=== PATIENT | male | born 1960 | race Caucasian/White ===

== ENCOUNTER 2020-11-27 10:14 | Outpatient (REF) | payer OTHER, SELFPAY ==
[2020-11-27 11:23] LABS: Estimated Average Glucose 108 mg/dL; Hemoglobin A1c % 5.4 %
[2020-11-27 12:21] LABS: Cholesterol 205 mg/dL; Glucose Fasting 107 mg/dL (60-99); HDL Cholesterol 36 mg/dL; LDL Cholesterol Calculated 137 mg/dl; Triglycerides 160 mg/dL
[2020-11-27 13:30] LABS: Reflex LDLD? No
== END 2020-11-27 10:15 | disposition home or self-care (01) ==
LOC: HO.LNP 10:14
PROVIDERS: Visit Provider Internal Medicine
DX: E78.00 Pure hypercholesterolemia, unspecified (principal)
CPT/HCPCS: 80061; 82947; 83036

== ENCOUNTER 2021-01-09 14:57 | Outpatient (REF) | payer OTHER, SELFPAY ==
--- NOTE | ~2021-01-09 | XR_ITS ---
EXAMINATION: XR THORACOLUMBAR SPINE CLINICAL INFORMATION: Contusion back. COMPARISON: Radiographs cervical spine 01/09/2021, chest radiographs 08/29/2008. TECHNIQUE: The thoracic spine is imaged in 5 views, AP x2, lateral x2, and lateral view coned to cervical thoracic region. FINDINGS: There is normal thoracic segmentation with 12 rib-bearing thoracic vertebrae of normal height and normal thoracic kyphosis. There is no visible thoracic vertebral compression, spondylolisthesis, destructive process, or paraspinal soft tissue swelling. There are multilevel vertebral spurring greatest anteriorly and right laterally with mild bridging osteophytes. There are some scattered anterior syndesmophytes anterior annulus. There is no significant focal disc narrowing and no erosive changes. XR/XR thoracic spine 2V IMPRESSION: 1. Normal thoracic kyphosis. No vertebral compression or spondylolisthesis. 2. Multilevel vertebral spurring and bridging osteophytes.
--- NOTE | ~2021-01-09 | XR_ITS ---
EXAMINATION: XR CERVICAL SPINE CLINICAL INFORMATION: Contusion back. COMPARISON: Thoracic spine radiographs 01/09/2021 TECHNIQUE: The cervical spine is imaged in 6 views: AP, odontoid x 2, lateral, bilateral oblique. FINDINGS: There is straightening and mild reversal cervical lordosis. The odontoid appears intact. The vertebral bodies are normal in height. There is normal bony mineralization. There is no cervical vertebral compression or visible fracture, spondylolisthesis, or prevertebral soft tissue swelling. There are degenerative disc changes C4-C5 and C5-C6 with mild disc narrowing and endplate sclerosis and vertebral osteophytes, greater anteriorly. There are also bridging anterior osteophytes without disc narrowing C6-C7, and there are syndesmophytes with ossification anterior and posterior annulus at C2-C3. Oblique views demonstrate bilateral foraminal spurring at C5-C6 and right foraminal spurring C6-C7. XR/XR cervical spine 4V IMPRESSION: 1. Mild reversal cervical lordosis with multilevel degenerative disc changes and vertebral spurring. Syndesmophytes C2-C3. Foraminal spurring lower cervical spine. 2. No vertebral compression, spondylolisthesis, or prevertebral soft tissue swelling.
== END 2021-01-09 14:58 | disposition home or self-care (01) ==
LOC: HO.XRAY 14:57
PROVIDERS: PCP Internal Medicine; Visit Provider Internal Medicine
DX: S20.229A Contusion of unspecified back wall of thorax, initial encounter (principal)
CPT/HCPCS: 72050; 72070

== ENCOUNTER 2021-06-05 10:17 | Outpatient (REF) | payer OTHER, SELFPAY ==
[2021-06-05 10:20] LABS: MANUAL DIFF FLAG NO
[2021-06-05 10:58] LABS: Mean Platelet Volume 10.1 fL (9.4-12.4); Neutrophils Percent Auto 57.2 % (45-73)
[2021-06-05 11:04] LABS: Appearance Urine CLEAR; Color Urine YELLOW; Glucose Urine UA NEG (NEG); Leukocyte Esterase Urine NEG (NEG); Nitrite Urine NEG (NEG); PH 5.5 (5.0-8.0); Specific Gravity - Urine 1.025 (1.005-1.025); Urine Blood NEG (NEG); Urine Ketones NEG (NEG); Urine Protein TRACE MG/DL (NEG-TRACE)
[2021-06-05 11:05] LABS: Estimated Average Glucose 114 mg/dL; Hemoglobin A1c % 5.6 %
[2021-06-05 11:09] LABS: Basophils Percent Auto 0.6 % (0-2); Eosinophils Absolute Auto 0.2 X10*3/uL (0.0-0.4); Eosinophils Percent Auto 2.9 % (0-4); Hematocrit 47.4 % (42.0-52.0); Hemoglobin 15.4 g/dl (14.0-18.0); Imm Gran Abs Auto 0.03 X10*3/uL (0.00-0.03); Imm Gran Pct Auto 0.4 % (0.0-0.4); Lymphocytes Absolute Auto 2.1 X10*3/uL (1.2-4.9); Lymphocytes Percent Auto 29.6 % (20-40); Mean Corpuscular HGB Conc 32.5 g/dl (31.0-36.0); Mean Corpuscular Volume 92.2 fL (80.0-98.0); Monocytes Absolute Auto 0.7 X10*3/uL (0.1-1.2); Monocytes Percent Auto 9.3 % (2-11); Neutrophils Absolute Auto 4.1 x10*3/uL (2.0-8.3); Platelet Count 263 X10*3/uL (160-400); Red Blood Count 5.14 X10*6/uL (4.60-5.80); Red Cell Distribution Width 12.9 % (11.0-16.0); White Blood Count 7.2 X10*3/uL (4.8-10.8)
[2021-06-05 11:28] LABS: Microalbum/Creatinine Ratio Ur 12.4 ug/mg cr
[2021-06-05 11:34] LABS: Alanine Aminotransferase 70 U/L (0-40); Albumin Level 4.1 g/dL (3.5-5.0); Alkaline Phosphatase 62 U/L (39-117); Anion Gap 17 (12-20); Aspartate Amino Transferase 38 U/L (5-37); Bilirubin Total 0.8 mg/dL (0.0-1.0); Blood Urea Nitrogen 19 mg/dL (9-16); Calcium 9.5 mg/dL (8.4-10.2); Carbon Dioxide 24 mmol/L (22-29); Chloride 107 mmol/L (96-108); Cholesterol 205 mg/dL; Estimated Glomerular Filt Rate > 60; Glucose Fasting 95 mg/dL (60-99); HDL Cholesterol 29 mg/dL; LDL Cholesterol Calculated 141 mg/dl; Potassium 4.8 mmol/L (3.3-5.1); Sodium 143 mmol/L (135-145); Total Protein 7.4 g/dL (6.5-8.0); Triglycerides 177 mg/dL
[2021-06-05 11:57] LABS: PSA,Total (Free>4and<10) 0.66 ng/mL (0.00-4.00)
[2021-06-05 13:47] LABS: Reflex LDLD? No
== END 2021-06-05 10:18 | disposition home or self-care (01) ==
LOC: HO.LNP 10:17
PROVIDERS: PCP Internal Medicine; Visit Provider Internal Medicine
DX: Z00.00 Encounter for general adult medical examination without abnormal findings (principal); Z12.5 Encounter for screening for malignant neoplasm of prostate; E78.00 Pure hypercholesterolemia, unspecified; R73.03 Prediabetes; N40.0 Benign prostatic hyperplasia without lower urinary tract symptoms
CPT/HCPCS: 80053; 80061; 81003; 82043; 83036; 84153; 85025

== ENCOUNTER 2022-06-13 10:49 | Outpatient (REF) | payer OTHER, SELFPAY ==
[2022-06-13 10:53] LABS: MANUAL DIFF FLAG NO
[2022-06-13 11:06] LABS: Basophils Absolute Auto 0.1 X10*3/uL (0.0-0.2); Basophils Percent Auto 0.6 % (0-2); Eosinophils Absolute Auto 0.3 X10*3/uL (0.0-0.4); Eosinophils Percent Auto 3.3 % (0-4); Hematocrit 46.6 % (42.0-52.0); Hemoglobin 15.4 g/dl (14.0-18.0); Imm Gran Abs Auto 0.04 X10*3/uL (0.00-0.03); Imm Gran Pct Auto 0.4 % (0.0-0.4); Lymphocytes Absolute Auto 2.3 X10*3/uL (1.2-4.9); Lymphocytes Percent Auto 23.6 % (20-40); Mean Corpuscular Hemoglobin 30.3 pg (27.0-33.0); Mean Corpuscular Volume 91.7 fL (80.0-98.0); Mean Platelet Volume 10.5 fL (9.4-12.4); Monocytes Absolute Auto 0.8 X10*3/uL (0.1-1.2); Neutrophils Absolute Auto 6.2 x10*3/uL (2.0-8.3); Neutrophils Percent Auto 64.1 % (45-73); Platelet Count 262 X10*3/uL (160-400); Red Blood Count 5.08 X10*6/uL (4.60-5.80); Red Cell Distribution Width 13.1 % (11.0-16.0); White Blood Count 9.7 X10*3/uL (4.8-10.8)
[2022-06-13 11:13] LABS: Appearance Urine Clear; Color Urine Yellow; Glucose Urine UA Negative (Negative); Leukocyte Esterase Urine Negative (Negative); Nitrite Urine Negative (Negative); Urine Blood Negative (Negative); Urine Ketones Negative (Negative); Urine Protein Negative (Neg-Trace)
[2022-06-13 11:19] LABS: Bacteria Urine None Seen (None Seen); Hyaline Casts Urine 0-2 /LPF (0-2); RBC Urine 0-2 /HPF (0-2); Squamous Epithelial Cell Urine 0-2 /HPF (0-2); WBC Urine 0-5 /HPF (0-5)
[2022-06-13 11:21] LABS: Alanine Aminotransferase 44 U/L (0-40); Alkaline Phosphatase 85 U/L (39-117); Anion Gap 14 (12-20); Aspartate Amino Transferase 26 U/L (5-37); Bilirubin Total 0.6 mg/dL (0.0-1.0); Blood Urea Nitrogen 19 mg/dL (9-16); Calcium 9.3 mg/dL (8.4-10.2); Carbon Dioxide 26 mmol/L (22-29); Chloride 105 mmol/L (96-108); Cholesterol 207 mg/dL; Estimated Glomerular Filt Rate > 60; Glucose Fasting 104 mg/dL (60-99); HDL Cholesterol 37 mg/dL; LDL Cholesterol Calculated 145 mg/dl; Potassium 4.4 mmol/L (3.3-5.1); Sodium 141 mmol/L (135-145); Total Protein 7.3 g/dL (6.5-8.0); Triglycerides 125 mg/dL
[2022-06-13 11:33] LABS: PSA,Total (Free>4and<10) 0.46 ng/mL (0.00-4.00)
[2022-06-13 12:19] LABS: Creatinine Urine 106.94 mg/dL; Microalbum/Creatinine Ratio Ur 21.5 ug/mg cr
[2022-06-13 12:38] LABS: Estimated Average Glucose 120 mg/dL; Hemoglobin A1c % 5.8 %
== END 2022-06-13 10:50 | disposition home or self-care (01) ==
LOC: HO.LNP 10:49
PROVIDERS: Visit Provider Internal Medicine
DX: Z00.00 Encounter for general adult medical examination without abnormal findings (principal); E78.00 Pure hypercholesterolemia, unspecified; R73.03 Prediabetes; N40.0 Benign prostatic hyperplasia without lower urinary tract symptoms; I10 Essential (primary) hypertension; Z12.5 Encounter for screening for malignant neoplasm of prostate
CPT/HCPCS: 80053; 80061; 81001; 82043; 83036; 84153; 85025

== ENCOUNTER 2022-11-01 09:59 | Day surgery (SDC) | payer OTHER, SELFPAY ==
[2022-11-01 10:30] VITALS: BMI 44.3
[2022-11-01 10:31] VITALS: BP 157/81; PULSE 63; RESP 18; TEMP 35.9; O2SAT 95
[2022-11-01] MEDS: Lactated Ringers 500 ML 20 ML IVCONT (10:54)
[2022-11-01 12:35] VITALS: BP 123/75; PULSE 72; RESP 16; TEMP 37.1; O2SAT 94
--- NOTE | 2022-11-01 12:38 | P.BOP_ITS ---
Brief Operative Note Date of Service: 11/01/22 Pre-op diagnosis: Screening Post-op diagnosis: other (Diverticulosis) Procedure: Colonoscopy to the cecum and TI Surgeon: Supa Moffett Anesthesia: MAC Was an Stitcher Tape Controlled Machine used for this Procedure?: No Estimated blood loss (mL): 0 Pathology: none sent Condition: stable Disposition: PACU
[2022-11-01 12:51] VITALS: BP 146/78; PULSE 73; RESP 20; TEMP 37.1; O2SAT 99
--- NOTE | 2022-11-01 13:48 | OP_ITS ---
DATE OF SERVICE: 11/01/2022 SURGEON: Supa oMffett MD INDICATIONS: The patient presents for evaluation of personal history of a tubular adenoma of the colon, family history of colon cancer, and colorectal cancer screening. Full consent has been obtained from him for this, including risks of bleeding and perforation. PREOPERATIVE DIAGNOSIS: POSTOPERATIVE DIAGNOSIS: PROCEDURE PERFORMED: Colonoscopy to the cecum and terminal ileum. ESTIMATED BLOOD LOSS: COMPLICATIONS: ANESTHESIA: Monitored anesthesia care. ASSISTANTS: SPECIMENS: PREOPERATIVE DIAGNOSES: Colorectal cancer screening, personal history of tubular adenoma of the colon, and family history of colon cancer. POSTOPERATIVE DIAGNOSES: Colorectal cancer screening, personal history of tubular adenoma of the colon, family history of colon cancer, sigmoid diverticulosis and internal hemorrhoids. DESCRIPTION OF PROCEDURE: The patient was placed in the left lateral decubitus position. The digital rectal exam revealed no abnormalities. The Olympus video pediatric colonoscope was entered into the rectum and advanced to the cecum with assistance of abdominal wall pressure. Once in the cecum, I did identify a normal-appearing cecal pouch with appendiceal orifice and a normal-appearing ileocecal valve. The terminal ileum was cannulated and appeared normal. The scope was withdrawn back in the colon. The entire cecum and ileocecal valve were well visualized and appeared normal. The scope was then slowly withdrawn assessing all mucosal surface carefully. For the most part, preparation was very good throughout the colon, although there were some small areas, particularly in the sigmoid colon, with some residual stool that was irrigated and suctioned away as best as possible. I did not visualize any polyps, colitis nor angiodysplasia. There was a mild amount of sigmoid diverticulosis. In the rectum, the scope was retroflexed visualizing internal hemorrhoids, but no other pathology. The rectal mucosa appeared normal. The scope was straightened out and withdrawn from the patient. He tolerated the procedure well and was returned to the recovery area in stable condition. IMPRESSION: 1. Diverticulosis. 2. Internal hemorrhoids. PLAN: I would recommend repeat colonoscopy in 5 years for further screening. He was advised that he could resume his aspirin today. MD DAKOTAH Wiggins/LAKSHMI / [id number] GLYNN
== END 2022-11-01 13:15 | disposition home or self-care (01) ==
PROVIDERS: PCP Internal Medicine; Visit Provider Internal Medicine
PROC: 0DJD8ZZ Inspection of Lower Intestinal Tract, Via Natural or Artificial Opening Endoscopic (ICD-10-PCS; CPT 45378; principal; 2022-11-01 11:30)
DX: Z12.11 Encounter for screening for malignant neoplasm of colon (principal); Z86.010 Personal history of colon polyps; Z80.0 Family history of malignant neoplasm of digestive organs; K57.30 Diverticulosis of large intestine without perforation or abscess without bleeding; K64.8 Other hemorrhoids; R14.0 Abdominal distension (gaseous); I10 Essential (primary) hypertension; I48.91 Unspecified atrial fibrillation; I48.92 Unspecified atrial flutter; G47.33 Obstructive sleep apnea (adult) (pediatric); Z79.899 Other long term (current) drug therapy; Z99.89 Dependence on other enabling machines and devices; Z79.82 Long term (current) use of aspirin
CPT/HCPCS: 45378

== ENCOUNTER 2023-06-10 11:32 | Outpatient (REF) | payer OTHER, SELFPAY ==
[2023-06-10 11:36] LABS: MANUAL DIFF FLAG NO
[2023-06-10 12:17] LABS: Appearance Urine Clear; Basophils Absolute Auto 0.1 X10*3/uL (0.0-0.2); Basophils Percent Auto 0.8 % (0-2); Color Urine Yellow; Eosinophils Absolute Auto 0.3 X10*3/uL (0.0-0.4); Eosinophils Percent Auto 3.9 % (0-4); Glucose Urine UA Negative (Negative); Hematocrit 48.4 % (42.0-52.0); Hemoglobin 15.9 g/dl (14.0-18.0); Imm Gran Abs Auto 0.02 X10*3/uL (0.00-0.03); Imm Gran Pct Auto 0.3 % (0.0-0.4); Leukocyte Esterase Urine Negative (Negative); Lymphocytes Absolute Auto 2.1 X10*3/uL (1.2-4.9); Lymphocytes Percent Auto 26.9 % (20-40); Mean Corpuscular HGB Conc 32.9 g/dl (31.0-36.0); Mean Corpuscular Hemoglobin 30.4 pg (27.0-33.0); Mean Corpuscular Volume 92.5 fL (80.0-98.0); Mean Platelet Volume 10.5 fL (9.4-12.4); Monocytes Absolute Auto 0.6 X10*3/uL (0.1-1.2); Monocytes Percent Auto 8.1 % (2-11); Neutrophils Absolute Auto 4.8 x10*3/uL (2.0-8.3); Nitrite Urine Negative (Negative); Platelet Count 257 X10*3/uL (160-400); Red Blood Count 5.23 X10*6/uL (4.60-5.80); Red Cell Distribution Width 13.3 % (11.0-16.0); Urine Blood Negative (Negative); Urine Ketones Negative (Negative); Urine Protein Negative (Neg-Trace)
[2023-06-10 12:33] LABS: Alanine Aminotransferase 25 U/L (0-40); Alkaline Phosphatase 61 U/L (39-117); Anion Gap 12 (12-20); Aspartate Amino Transferase 22 U/L (5-37); Bilirubin Total 0.9 mg/dL (0.0-1.0); Blood Urea Nitrogen 16 mg/dL (9-16); Calcium 9.3 mg/dL (8.4-10.2); Carbon Dioxide 27 mmol/L (22-29); Chloride 103 mmol/L (96-108); Cholesterol 208 mg/dL (<200); Estimated Glomerular Filt Rate > 60; Glucose Fasting 104 mg/dL (60-99); HDL Cholesterol 33 mg/dL (>40); LDL Cholesterol Calculated 133 mg/dL (<100); Potassium 3.9 mmol/L (3.3-5.1); Sodium 138 mmol/L (135-145); Total Protein 7.6 g/dL (6.5-8.0); Triglycerides 212 mg/dL (<150)
[2023-06-10 12:34] LABS: Estimated Average Glucose 117 mg/dL; Hemoglobin A1c % 5.7 % (<6.0)
[2023-06-10 12:46] LABS: PSA,Total (Free>4and<10) 0.65 ng/mL (0.00-4.00)
[2023-06-10 12:59] LABS: Creatinine Urine 178.96 mg/dL; Microalbum/Creatinine Ratio Ur 11.1 ug/mg cr (<30)
== END 2023-06-10 11:33 | disposition home or self-care (01) ==
LOC: HO.LNP 11:32
PROVIDERS: Visit Provider Internal Medicine
DX: E78.00 Pure hypercholesterolemia, unspecified (principal); N40.0 Benign prostatic hyperplasia without lower urinary tract symptoms; I10 Essential (primary) hypertension; E11.9 Type 2 diabetes mellitus without complications; Z12.5 Encounter for screening for malignant neoplasm of prostate
CPT/HCPCS: 80053; 80061; 81003; 82043; 82570; 83036; 84153; 85025

== ENCOUNTER 2024-06-10 10:42 | Outpatient (REF) | payer OTHER, SELFPAY ==
[2024-06-10 10:47] LABS: MANUAL DIFF FLAG NO
[2024-06-10 10:53] LABS: Basophils Absolute Auto 0.1 X10*3/uL (0.0-0.2); Basophils Percent Auto 0.7 % (0-2); Eosinophils Absolute Auto 0.2 X10*3/uL (0.0-0.4); Eosinophils Percent Auto 2.8 % (0-4); Hematocrit 46.5 % (42.0-52.0); Hemoglobin 15.7 g/dl (14.0-18.0); Imm Gran Abs Auto 0.03 X10*3/uL (0.00-0.03); Imm Gran Pct Auto 0.4 % (0.0-0.4); Lymphocytes Absolute Auto 2.5 X10*3/uL (1.2-4.9); Mean Corpuscular HGB Conc 33.8 g/dl (31.0-36.0); Mean Corpuscular Hemoglobin 30.7 pg (27.0-33.0); Mean Platelet Volume 10.3 fL (9.4-12.4); Monocytes Absolute Auto 0.8 X10*3/uL (0.1-1.2); Neutrophils Percent Auto 58.1 % (45-73); Platelet Count 265 X10*3/uL (160-400); Red Blood Count 5.11 X10*6/uL (4.60-5.80); Red Cell Distribution Width 13.2 % (11.0-16.0); White Blood Count 8.5 X10*3/uL (4.8-10.8)
[2024-06-10 11:05] LABS: Appearance Urine Cloudy; Color Urine Yellow; Glucose Urine UA Negative (Negative); Leukocyte Esterase Urine Negative (Negative); Nitrite Urine Negative (Negative); Urine Blood Negative (Negative); Urine Ketones Negative (Negative); Urine Protein Negative (Neg-Trace)
[2024-06-10 11:07] LABS: Alanine Aminotransferase 46 U/L (0-40); Alkaline Phosphatase 64 U/L (39-117); Anion Gap 9 (12-20); Aspartate Amino Transferase 36 U/L (5-37); Bilirubin Total 0.8 mg/dL (0.0-1.0); Blood Urea Nitrogen 18 mg/dL (9-16); Calcium 9.3 mg/dL (8.4-10.2); Carbon Dioxide 30 mmol/L (22-29); Chloride 105 mmol/L (96-108); Cholesterol 210 mg/dL (<200); Estimated Glomerular Filt Rate > 60; Glucose Fasting 105 mg/dL (60-99); HDL Cholesterol 35 mg/dL (>40); LDL Cholesterol Calculated 138 mg/dL (<100); Potassium 4.2 mmol/L (3.3-5.1); Sodium 140 mmol/L (135-145); Total Protein 7.5 g/dL (6.5-8.0); Triglycerides 185 mg/dL (<150)
[2024-06-10 11:10] LABS: Bacteria Urine None Seen (None Seen); Hyaline Casts Urine 0-2 /LPF (0-2); RBC Urine 0-2 /HPF (0-2); Squamous Epithelial Cell Urine 0-2 /HPF (0-2); WBC Urine 0-5 /HPF (0-5)
[2024-06-10 11:28] LABS: PSA,Total (Free>4and<10) 0.57 ng/mL (0.00-4.00)
[2024-06-10 12:00] LABS: Microalbum/Creatinine Ratio Ur 15.7 ug/mg cr (<30)
[2024-06-10 14:14] LABS: Estimated Average Glucose 117 mg/dL; Hemoglobin A1C 152.9079 umol/L; Hemoglobin A1c % 5.7 % (<6.0); Total Hemoglobin (HGBA1C) 3966.9539 umol/L
== END 2024-06-10 10:43 | disposition home or self-care (01) ==
LOC: HO.LNP 10:42
PROVIDERS: Visit Provider Internal Medicine
DX: E78.00 Pure hypercholesterolemia, unspecified (principal); N40.0 Benign prostatic hyperplasia without lower urinary tract symptoms; I10 Essential (primary) hypertension; E11.9 Type 2 diabetes mellitus without complications; Z12.5 Encounter for screening for malignant neoplasm of prostate
CPT/HCPCS: 80053; 80061; 81001; 82043; 82570; 83036; 84153; 85025

== ENCOUNTER 2024-09-23 07:30 | Outpatient (REF) | payer OTHER, SELFPAY ==
[2024-09-23 11:22] LABS: Alanine Aminotransferase 30 U/L (0-40); Alkaline Phosphatase 72 U/L (39-117); Aspartate Amino Transferase 27 U/L (5-37); Bilirubin Direct 0.4 mg/dL (0.0-0.5); Bilirubin Total 1.1 mg/dL (0.0-1.0); Cholesterol 127 mg/dL (<200); Glucose Fasting 104 mg/dL (60-99); HDL Cholesterol 33 mg/dL (>40); LDL Cholesterol Calculated 66 mg/dL (<100); Total Protein 7.7 g/dL (6.5-8.0); Triglycerides 143 mg/dL (<150)
[2024-09-23 11:24] LABS: Estimated Average Glucose 120 mg/dL; Hemoglobin A1C 159.1858 umol/L; Hemoglobin A1c % 5.8 % (<6.0); Total Hemoglobin (HGBA1C) 3955.8327 umol/L
--- OUTSIDE RECORDS SUMMARY | 2024-09-23 12:58 | XMS_ITS ---
[facility] Address [address] [place] [address] Care Team Providers Care Cyber Defense Analyst Name Role Phone Yogi Samaniego MD Primary Care Provider Fercho Nielsen Unavailable [phone] Karin Soto Unavailable [phone] Allergies Allergen (clinical drug ingredient) Drug/Non Drug Allergy documented on EMR Reaction Allergy Type Onset Date Status morphine Morphine nausea Drug Allergy Active REASON FOR VISIT Ingrown nail Medications Medication SIG (Take, Route, Frequency, Duration) Notes Start Date End Date Status dilTIAZem HCl ER Beads 240 MG 1 capsule Orally Once a day for 30 day(s) Active Flecainide Acetate 150 MG as directed Orally 05/02 Active Flecainide Acetate N ot-Taking dilTIAZem HCl ER Coated Beads 240 MG TAKE ONE CAPSULE BY MOUTH EVERY DAY Oral for 90 Not-Taking Doxycycline Hyclate 100 MG TAKE 1 TABLET (ORAL) 2 TIMES PER DAY FOR 7 DAYS Oral for 7 Not-Taking Aspir-81 Not-Taking Birgit Aspirin 325 MG 1 tablet Orally Onc e a day for 30 day(s) Not-Taking Triamcinolone Acetonide 0.025 % APPLY 1 APPLICATION (TOPICAL) 2 TIMES PER DAY FOR 14 DAYS External for 14 Not-Taking Cephalexin 500 MG 1 tablet Orally Twice a day for 10 day(s) Not-Taking Birgit Aspirin 325 MG 1 tablet Orally Onc e a day for 30 day(s) 05/02/2021 Active Metoprolol Tartrate 50 MG 1 tablet with food Orally Twice a day for 30 day(s) 05/02/2021 Active Ibuprofen 800 MG TAKE 1 TABLET BY MOUTH 3 TIMES A DAY Oral for 30 PRN Active Lisinopril 2.5 MG 1 tablet Orally Once a day for 30 day(s) Active methylPREDNISolone 4 MG TAKE 6 TABLETS O N DAY 1 DIRECTED ON PACKAGE AND DECREASE BY 1 TAB EACH DAY FOR A TOTAL OF 6 DAYS Oral for 6 Not-Taking Social History Tobacco use other than smoking: Question Answer Notes Are you an other tobacco user? No Vital Signs Height 5ft 9in in 05/27/2024 Weight 300 lbs 05/27/2024 BMI 44.3 kg/m2 05/27/2024 Procedures Procedure Date Ordered Date Performed Result Body Sit e [id number] 05/27/2024 N/A Encounters Encounter Location Date Provider Diagnosis [facility] [place] [address] [address] 05/27/2024 Karin Soto Ingrown nail L60.0 Assessments Encounter Date Diagnosis (ICD Code) Assessment Notes Treatment Notes Treatment Clinical Notes Section Notes 05/27/2024 Ingrown nail (ICD-10 - L60.0) Plan Of Treatment Pending Test Test Name Order Date [id number] 05/27/2024 Next Appt Details Follow Up: 2-4 Weeks, Reason : Procedure Notes * Category Sub-Category Detail Notes Matricectomy (OP NOTE) Consent The patie nt was brought to the examination room and placed on the table in a supine position. The pre/benji/postoperative course, risks, complications and alternatives were discussed, understood and accepted by the patient. No guarantees were given regarding the surgical outcome Procedure A digital prep with alcohol or betadine was performed. 3cc of 1 percent Xylocaine Plain local anesthetic was administered to the toe via digital block utilizing aseptic technique. A digital touriquet was applied. The affected toenail portion was undermined, incised and resected to the eponychium and matrix. It was noted to be significantly incurvated and hypertrophied. The nailbed and matrix were curetted and the nail groove, bed and matrix were cauterized with Phenol, 3 applications of 30 seconds each from a cotton tip applicator, no underling bone was identified. The surrounding skin was protected from the Phenol with Bacitracin ointment. The tourniquet was released and capillary fill time was intact to the digit. A sterile Bacitracin dressing was applied Disposition Disposition: The pat ient tolerated the procedure and anesthesia well and left in good condition, alert, oriented and stable in no acute distress. Local wound care instructions were discussed and dispensed. There were no complications and the prognosis is favorable, Recommended alternating/staggering Tylenol XS 2 tabs and Motrin 600mg q 6 hrs ea for discomfort, Rx narcotic postop pain meds were deferred Location Lateral nail border, TA Progress Notes * Clarke BEEBEDOB:1960 (64 yo M)Acc No.[id number]:05/27/2024 Progress Notes Patient:?Clarke Beebe Provider:?Karin Soto DPM :1960???Age:64 Y???Sex:Male Lyndon e:05/27/2024 Address:[address] [place], [place] [address], [id number] Pcp:Yogi Samaniego MD Subjective: * Chief Complaints: * ???Ingrown nail * ROS:?General/Constitutional:?Nausea?denies.?Vomiting?denies.?Hunger Thirst?denies.?Loss appetite?denies.?Chills?denies.?Fatigue?denies.?Fever?denies.?Night Sweats?denies.?Unexplained weight loss?denies.?Unexplained weight gain?denies.?HEENTM:?Dentures?denies.?Dizziness?denies.?Glasses/contacts?denies.?Retinopathy?de nies.?Blurred/double vision?denies.?TMJ?denies.?Discharge/drainage?denies.?Implants?denies.?Sore throat?denies.?Dental implants?denies.?Hard of hearing ?denies.?Difficulty chewing/swallowing/speaking?denies.?Nose bleeds?denies.?Sore mouth?denies.?Respiratory:?On Oxygen?denies.?Pneumonia/pleurisy?denies.?Bronchitis?denies.?Emphysema?denies.?C oughing?denies.?Cough blood?denies.?Shortness of breath?denies.?Wheezing?denies.?Cardiovascular:?Pacemaker?denies.?MVP?denies.?WPW?denies.?CHF?denies.?Heart attack?denies.?Septal defect?denies.?Rapid beat?denies.?Chest pain ?denies.?Atrial Fib.?admits.?Murmur/Palpitations?denies.?Gastrointestinal:?Hemorrhoids?denies.?Stomach/Abdominal pain?denies.?Dark blood stool?denies.?Irritable bowel ?denies.?Constipation?denies.?Diarrhea?denies.?Hematology:?Swelling?admits.?Clots?denies.?Varicose Veins?denies.?Bruising?denies.?Bleeding problem?denies.?Genitourinary:?Blood urine?denies.?Frequent/Painfu/urination/bladder control?denies.?Kidney stones?denies.?Infection (UTI)?denies.?Nephropathy?denies.?sex trans dis (STD)?denies.?Prostate?denies.?Musculoskeletal:?Hammertoes?denies.?Bunions?denies.?Back Pain?admits.?Muscle Cramps/ Resting?denies.?Muscle cramps / walking?denies.?Generalized aches and pains?admits.?Weakness?denies.?Integ.:?Velasquez?denies.?Scars?denies.?Corns/calluses?denies.?Ingrown nails?admits.?Painful nails?denies.?Open Sores?denies.?Rashes?denies.?Neurologic:?Difficulty sleeping?denies.?Brain disorder?denies.?Numbness?denies.?Balance trouble?denies.?Confusion?denies.?Fainting/blackouts?denies.?Tingling?admits.?Tr emors?denies.? * Medical History:? * Surgical History:?achilles t endon repair knee surgery Bilateral cardioversion ablation for afib x2 * Hospitalization/Major Diagno stic Procedure:?No Hospitalization History. * Family History:?Mother: helena negrete, arthritis , foot problems,, diagnosed with Diabetic - NIDDM.?Father: , diagnosed with Other malignant neoplasm of unspecified site.?Siblings: foot problems, High blood pressure, diagnosed with Diabetic - NIDDM.?Spouse: alive.?1 brother(s) , 1 sister(s) . .? * Social History:?Tobacco Use:?Tobacco Use/Smoking?Are you a:: nonsmoker , Additional Findings: Tobacco Non-User: Current non-smoker.?Tobacco use other than smoking?Are you an other tobacco user??No ???Drugs/Alcohol:?Drugs?Have you used drugs other than those for medical reasons in the past 12 months??No ?Alcohol Screen?Did you have a drink containing alcohol in the past year?: Yes, Points: 0, Interpretation: Negative.?Miscellaneous:?Caffeine: yes, frequency:, 1-2 cups per day. ?Children: unknown. ?Marital status: . 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 * Medications:?TakingBayer Asp irin 325 MG Tablet 1 tablet Orally Once a daydilTIAZem HCl ER Beads 240 MG Capsule Extended Release 24 Hour 1 capsule Orally Once a dayFlecainide Acetate 150 MG Tablet as directed Orally Ibuprofen 800 MG Tablet TAKE 1 TABLET BY MOUTH 3 TIMES A DAY Oral , Notes: PRNLisinopril 2.5 MG Tablet 1 tablet Orally Once a dayMetoprolol Tartrate 50 MG Tablet 1 tablet with food Orally Twice a dayTaking Birgit Aspirin 325 MG Tablet 1 tablet Orally Once a dayTaking dilTIAZem HCl ER Beads 240 MG Capsule Extended Release 24 Hour 1 capsule Orally Once a dayTaking Flecainide Acetate 150 MG Tablet as directed Orally Taking Ibuprofen 800 MG Tablet TAKE 1 TABLET BY MOUTH 3 TIMES A DAY Oral , Notes: PRNTaking Lisinopril 2.5 MG Tablet 1 tablet Orally Once a dayTaking Metoprolol Tartrate 50 MG Tablet 1 tablet with food Orally Twice a dayNot-Taking/PRNAspir-81 Birgit Aspirin 325 MG Tablet 1 tablet Orally Once a dayCephalexin 500 MG Tablet 1 tablet Orally Twice a daydilTIAZem HCl ER Coated Beads 240 MG Capsule Extended Release 24 Hour TAKE ONE CAPSULE BY MOUTH EVERY DAY Oral Doxycycline Hyclate 100 MG Tablet TAKE 1 TABLET (ORAL) 2 TIMES PER DAY FOR 7 DAYS Oral Flecainide Acetate methylPREDNISolone 4 MG Tablet Therapy Pack TAKE 6 TABLETS ON DAY 1 DIRECTED ON PACKAGE AND DECREASE BY 1 TAB EACH DAY FOR A TOTAL OF 6 DAYS Oral Triamcinolone Acetonide 0.025 % Cream APPLY 1 APPLICATION (TOPICAL) 2 TIMES PER DAY FOR 14 DAYS External Medication List reviewed and reconciled with the patientNot-Taking/PRN Aspir-81 Not-Taking/PRN Birgit Aspirin 325 MG Tablet 1 tablet Orally Once a dayNot-Taking/PRN Cephalexin 500 MG Tablet 1 tablet Orally Twice a dayNot-Taking/PRN dilTIAZem HCl ER Coated Beads 240 MG Capsule Extended Release 24 Hour TAKE ONE CAPSULE BY MOUTH EVERY DAY Oral Not-Taking/PRN Doxycycline Hyclate 100 MG Tablet TAKE 1 TABLET (ORAL) 2 TIMES PER DAY FOR 7 DAYS Oral Not-Taking/PRN Flecainide Acetate Not-Taking/PRN methylPREDNISolone 4 MG Tablet Therapy Pack TAKE 6 TABLETS ON DAY 1 DIRECTED ON PACKAGE AND DECREASE BY 1 TAB EACH DAY FOR A TOTAL OF 6 DAYS Oral Not-Taking/PRN Triamcinolone Acetonide 0.025 % Cream APPLY 1 APPLICATION (TOPICAL) 2 TIMES PER DAY FOR 14 DAYS External Medication List reviewed and reconciled with the patient * Allergies:?Morphine: nauseay es[Allergies Verified] Objective: * Vitals:?Ht:5ft 9in, Wt:300, BMI:44.3, Shoe size:12.5-13, Ht-cm: 175.26 cm, Wt- k.08 kg. * Examination: ???Ingrown Nail: ?INSPECTION:?Reveals incurvation, pain on palpation, groove hypertrophy, lateral nail border, TA.?Orthopedic: ?MUSCLE STRENGTH:?5/5 all groups in a symmetrical fashion , B/L.?FOOT MORPHOLOGY:?Pes Planus structure.?Neurological: ?SENSORY:?Neurological exam reveals intact sensorium, pain sensation normal, vibration sensation intact, pinprick sensation is normal in the lower extremities, Pt denies, anesthesia, burning, paresthesia, tingling, B/L.?Vascular: ?DP PULSES(B):?2/4, B/L.?PT PULSES(B):?2/4, B/L.?CAPILLARY FILL TIME:?immediate, all digits, B/L.?TROPHIC CONDITION-TEXTURE/ELASTICITY/TURGOR/HAIR GROWTH(B):?normal, B/L.?TEMPERTURE GRADIENT(C):?warm to cool, proximal to distal, B/L.?PIGMENTATION:?normal, B/L.?EDEMA(C):?absent, B/L.?Dermatologic: ?SKIN FINDINGS:?Skin exam reveals normal texture, elasticity, and turgor. There are no masses. The interspaces are clear.? Assessment: * Assessment: 1.?Ingrown nail - L60.0 (Felicita marlena), Lateral nail border, TA? Plan: * Treatment: * Procedures:?Matricectomy (OP NOTE):?Location?Lateral nail border, TA.?Consent?The patient was brought to the examination room and placed on the table in a supine position. The pre/benji/postoperative course, risks, complications and alternatives were discussed, understood and accepted by the patient. No guarantees were given regarding the surgical outcome.?Procedure?A digital prep with alcohol or betadine was performed. 3cc of 1 percent ?Xylocaine Plain local anesthetic was administered to the toe via digital block utilizing aseptic technique. A digital touriquet was applied. The affected toenail portion was undermined, incised and resected to the eponychium and matrix. It was noted to be significantly incurvated and hypertrophied. The nailbed and matrix were curetted and the nail groove, bed and matrix were cauterized with Phenol, 3 applications of 30 seconds each from a cotton tip applicator, no underling bone was identified. The surrounding skin was protected from the Phenol with Bacitracin ointment. The tourniquet was released and capillary fill time was intact to the digit. A sterile Bacitracin dressing was applied .?Disposition?Disposition: The patient tolerated the procedure and anesthesia well and left in good condition, alert, oriented and stable in no acute distress. Local wound care instructions were discussed and dispensed. There were no complications and the prognosis is favorable, Recommended alternating/staggering Tylenol XS 2 tabs and Motrin 600mg q 6 hrs ea for discomfort, Rx narcotic postop pain meds were deferred.? * Procedure Codes:?37370 REMOV AL OF NAIL BED, Modifiers: TA * Follow Up:?2-4 Weeks * Images: * Sign off status: Completed true * Provider:?Karin Soto DPM Date:? Generated for Ilan escalona/Chencho/Catracho on:?09/23/2024 12:58 PM EST History and Physical Notes * Examination Category Sub-Category Detail Notes Category Not es Ingrown Nail INSPECTION: Reveals incurvat ion, pain on palpation, groove hypertrophy, lateral nail border, TA Neurological SENSORY: Neurological exa m reveals intact sensorium, pain sensation normal, vibration sensation intact, pinprick sensation is normal in the lower extremities, Pt denies, anesthesia, burning, paresthesia, tingling, B/L Dermatologic SKIN FINDINGS: Skin exam reveal s normal texture, elasticity, and turgor. There are no masses. The interspaces are clear Orthopedic FOOT MORPHOLOGY: Pes Planus structure MUSCLE STRENGTH: 5/5 all groups in a symmetrical fashion , B/L Vascular DP PULSES (B): 2/4, B/L PT PULSES (B): 2/4, B/L CAPILLARY FILL TIME: immediate, all digi ts, B/L TEMPERTURE GRADIENT (C): warm to cool, p roximal to distal, B/L TROPHIC CONDITION-TEXTURE/ELASTICITY/TURGOR/HAIR GROWTH (B): normal, B/L EDEMA (C): absent, B/L PIGMENTATION: normal, B/L
--- OUTSIDE RECORDS SUMMARY | 2024-09-23 12:58 | XMS_ITS | Clinical Summary ---
Author Organization [facility] Address [address] [place] [address] Care Team Providers Care Pacs Administrator Name Role Phone Unavailable Primary Care Provider Unavailabl e Social History Tobacco Use Types Packs/Day Years Used Date Smoking Tobacco: Never Assessed Sex and Gender Information Value Date Recorded Sex Assigned at Not on file Legal Sex Male 4:17 AM EST Gender Identity Not on file Sexual Orientation Not on file Plan of Treatment Health Maintenance Due Date Last Done Comments DTaP,Tdap,and Td Vaccines (1 - Tdap) 1977 Pneumococcal Vaccine: 50+ Ye ars (1 of 1 - PCV) 2008 Zoster Vaccines (1 of 2) 2008 COVID-19 Vaccine ( - 2023-2 5 season) 2024 Influenza Vaccine (#1) 2024 RSV Immunization Patients 60 + Years Old (1 - 1-dose 75+ series) 2033 HIB Vaccines Aged Out No longer eligi ble based on patient's age to complete this topic HPV Vaccines Aged Out No longer eligi ble based on patient's age to complete this topic Hepatitis A Vaccines Aged Out No long er eligible based on patient's age to complete this topic Hepatitis B Vaccines Aged Out No long er eligible based on patient's age to complete this topic IPV Vaccines Aged Out No longer eligi ble based on patient's age to complete this topic MMR Vaccines Aged Out No longer eligi ble based on patient's age to complete this topic Meningococcal ACWY Vaccine Aged Out N o longer eligible based on patient's age to complete this topic Meningococcal B Vacine Aged Out No lo nger eligible based on patient's age to complete this topic RSV Immunization Patients Un jael 20 months Aged Out No longer eligible b ased on patient's age to complete this topic Varicella Vaccines Aged Out No longer eligible based on patient's age to complete this topic
--- OUTSIDE RECORDS SUMMARY | 2024-09-23 12:58 | XMS_ITS | Patient Health Record ---
Author Organization [facility] [place] Address [address] [facility] [place] [address] Care Team Providers Care Primer Assembler Name Role Phone Yogi Samaniego MD Primary Care Provider Fercho Nielsen Unavailable [phone] Karin Soto Unavailable [phone] Allergies Allergen (clinical drug ingredient) Drug/Non Drug Allergy documented on EMR Reaction Allergy Type Onset Date Status morphine Morphine nausea Drug Allergy Active Reason For Referral No Information Medications Medication SIG (Take, Route, Frequency, Duration) Notes Start Date End Date Status Metoprolol Tartrate 50 MG 1 tablet with food Orally Twice a day for 30 day(s) 05/02/2021 Active Aspir-81 Not-Taking Birgit Aspirin 325 MG 1 tablet Orally Onc e a day for 30 day(s) Not-Taking dilTIAZem HCl ER Beads 240 MG 1 capsule Orally Once a day for 30 day(s) Active methylPREDNISolone 4 MG TAKE 6 TABLETS O N DAY 1 DIRECTED ON PACKAGE AND DECREASE BY 1 TAB EACH DAY FOR A TOTAL OF 6 DAYS Oral for 6 Not-Taking Flecainide Acetate 150 MG as directed Orally 05/02 Active Triamcinolone Acetonide 0.025 % APPLY 1 APPLICATION (TOPICAL) 2 TIMES PER DAY FOR 14 DAYS External for 14 Not-Taking Ibuprofen 800 MG TAKE 1 TABLET BY MOUTH 3 TIMES A DAY Oral for 30 PRN Active Lisinopril 2.5 MG 1 tablet Orally Once a day for 30 day(s) Active Cephalexin 500 MG 1 tablet Orally Twice a day for 10 day(s) Not-Taking dilTIAZem HCl ER Coated Beads 240 MG TAKE ONE CAPSULE BY MOUTH EVERY DAY Oral for 90 Not-Taking Doxycycline Hyclate 100 MG TAKE 1 TABLET (ORAL) 2 TIMES PER DAY FOR 7 DAYS Oral for 7 Not-Taking Birgit Aspirin 325 MG 1 tablet Orally Onc e a day for 30 day(s) 05/02/2021 Active Flecainide Acetate N ot-Taking Social History Tobacco use other than smoking: Question Answer Notes Are you an other tobacco user? No Problems Problem Type SNOMED Code ICD Code Onset Dates Problem Status W/U Status Risk Notes Problem Skin ulcer of toe of right foot with fat layer exposed (L97.512) Active confirmed Problem Skin ulcer of toe of left foot with fat layer exposed (L97.522) Active confirmed Vital Signs Height 5ft 9in in 06/15/2024 Weight 300 lbs 06/15/2024 BMI 44.3 kg/m2 06/15/2024 Procedures Procedure Date Ordered Date Performed Result Body Sit e 19650-HCQ 05/27/2024 N/A 32737-NCESUPD SKIN/TISSUE 06/15/2024 N/A Encounters Encounter Location Date Provider Diagnosis [facility] [address] [address] 05/27/2024 Karin Soto Ingrown nail L60.[address] [facility] [address] 06/15/2024 Karin Blissaker Skin ulcer of toe of left foot with fat layer exposed L97.522 Assessments Encounter Date Diagnosis (ICD Code) Assessment Notes Treatment Notes Treatment Clinical Notes Section Notes 05/27/2024 Ingrown nail (ICD-10 - L60.0) 06/15/2024 Skin ulcer of toe of left foot with fat layer exposed (ICD-10 - L97.522) Patient Educated with: WOUND CARE INSTRUCTIONS.p df (WOUND CARE INSTRUCTIONS.p df) 06/15/2024 Other Plan Of Treatment Pending Test Test Name Order Date 49346-Noctorez Plate 05/17/2021 10569-HUM 05/27/2024 78706-BHMPQOC SKIN/TISSUE 06/15/2024 26075 I&D ABSCESS- SIMPLE,SINGLE 016 Insurance Providers Payer Name Payer Address Payer Phone Subscriber Number Group Number Insured Name Patient Relationship to Insured Coverage Start Date Coverage End Date Medicare National [employer] [address] [place] [address] [id number] Clarke Arriaga Self - patient is the insured 3 [employer] [address] [place] [address] [phone] [id number] Bart Clarke Self - patient is the insured Medical (General) History Medical History History ICD Code covid 19 arthritis Back, Hip, Knee pain high blood pressure Afib Surgical History Surgery Date(Month/Year) achilles tendon repair knee surgery Bilateral cardioversion ablation for afib x2
--- OUTSIDE RECORDS SUMMARY | 2024-09-23 12:58 | XMS_ITS ---
Author Organization Yogi Samaniego MD Address [address] [place], [place] [id number] Care Team Providers Care Can Solderer Name Role Phone Yogi Samaniego Primary Care Provider [phone] Results Component Value Reference Range Notes Complete Blood Count Auto Di ff Reviewed date:06/10/2024 03:16:21 PM Interpretation: Performing Lab:[facility], [address] [place] [phone] Notes/Report: White Blood Count 8.5 4.8-10.8 X10*3/uL Red Blood Count 5.11 4.60-5.80 X10*6/uL Hemoglobin 15.7 14.0-18.0 g/dl Hematocrit 46.5 42.0-52.0 % Mean Corpuscular Volume 91.0 80.0-98.0 fL Mean Corpuscular Hemoglobin 30.7 27.0-33.0 pg Mean Corpuscular HGB Conc 33.8 31.0-36.0 g/dl Red Cell Distribution Width 13.2 11.0-16.0 % Platelet Count 265 160-400 X10*3/uL Mean Platelet Volume 10.3 9.4-12.4 fL Neutrophils Percent Auto 58.1 45-73 % Imm Gran Pct Auto 0.4 0.0-0.4 % Lymphocytes Percent Auto 29.0 20-40 % Monocytes Percent Auto 9.0 2-11 % Eosinophils Percent Auto 2.8 0-4 % Basophils Percent Auto 0.7 0-2 % NRBC Pct Auto 0.0 0.0-0.2 /100WBC Neutrophils Absolute Auto 5.0 2.0-8.3 x10*3/u L Imm Gran Abs Auto 0.03 0.00-0.03 X10*3/uL Lymphocytes Absolute Auto 2.5 1.2-4.9 X10*3/u L Monocytes Absolute Auto 0.8 0.1-1.2 X10*3/uL Eosinophils Absolute Auto 0.2 0.0-0.4 X10*3/u L Basophils Absolute Auto 0.1 0.0-0.2 X10*3/uL NRBC Abs Auto 0.000 0.0-0.012 X10*3/uL [facility]. Panel Fa st Reviewed date:06/10/2024 12:44:25 PM Interpretation: Performing Lab:[facility], [address] [place] [phone] Notes/Report: Sodium 140 135-145 mmol/L Potassium 4.2 3.3-5.1 mmol/L Chloride 105 96-108 mmol/L Carbon Dioxide 30 22-29 mmol/L Anion Gap 9 12-20 Blood Urea Nitrogen 18 9-16 mg/dL Creatinine 1.04 0.5-1.4 mg/dL Estimated Glomerular Filt Rate > 60 Chronic Kidney Disease: Estimated GFR < 60 mL/min/1.73m2 Severe Kidney Disease: Estimated GFR < 15 mL/min/1.73m2 Glucose Fasting 105 60-99 mg/dL A fasting glucose from 100-125 mg/dl is considered impaired (pre-diabetes). Calcium 9.3 8.4-10.2 mg/dL Bilirubin Total 0.8 0.0-1.0 mg/dL Aspartate Amino Transferase 36 5-37 U/L Alanine Aminotransferase 46 0-40 U/L Total Protein 7.5 6.5-8.0 g/dL Albumin Level 4.0 3.5-5.0 g/dL Alkaline Phosphatase 64 39-117 U/L Lipid Panel Reviewed date:06/10/2024 12:56:29 PM Interpretation: Performing Lab:[facility], [address] [place] [phone] Notes/Report: Triglycerides 185 <150 mg/dL Desirable Triglyceride: less than 150 mg/dL Borderline High Triglyceride 150-199 mg/dL High Triglyceride: 200-499 mg/dL Very High Triglyceride: greater than or equal to 5OO mg/dL Cholesterol 210 <200 mg/dL Desirable Cholesterol: less than 200 mg/dL Borderline High Cholesterol: 200-239 mg/dL High Cholesterol: greater than 239 mg/dL LDL Cholesterol Calculated 138 <100 mg/dL Desirable LDL: less than 100 mg/dL Near Optimal/Above Optimal LDL: 110-129 mg/dL Borderline High LDL: 130-159 mg/dL High LDL: 160-189 mg/dL Very High LDL: greater than or equal to 190 mg/dL HDL Cholesterol 35 >40 mg/dL Desirable HDL: greater than 40 mg/dL Note: This HDL assay may give artificially low results in patients with liver disease. PSA,Total (Free>4and<10) Reviewed date:06/10/2024 12:44:04 PM Interpretation: Performing Lab:[facility], [address] [place] [phone] Notes/Report: PSA,Total (Free>4and<10) 0.57 0.00-4.00 ng/mL A Free PSA was not performed: The percentage of Free PSA can be used to enhance the differentiation of prostate cancer from benign prostatic disease in subjects whose PSA levels are between 4.0 and 10.0 ng/mL. For subjects whose PSA levels are below 4.0 or above 10.0 ng/mL, the risk of prostate cancer is determined on the basis of the PSA alone. Therefore the % Free PSA is recommended only for those subjects whose PSA levels are between 4.0 and 10.0 ng/mL. PSA methodology: [employer] Alinity i Chemiluminescent Microparticle Immunoassay (CMIA) Microalbumin, Random Reviewed date:06/10/2024 03:17:20 PM Interpretation: Performing Lab:[facility], [address] [place] [phone] Notes/Report: Creatinine Urine 158.80 Microalbumin Urine 25.0 Microalbum/Creatinine Ratio Ur 15.7 <30 ug/mg cr Albumin/Creatinine Ratio Reference Ranges: Normal: < 30 ug/mg creatinine Microalbuminuria: 30 - 300 ug/mg creatinine Clinical Albuminuria: > 300 ug/mg creatinine Hemoglobin A1c Reviewed date:06/10/2024 03:17:09 PM Interpretation: Performing Lab:[facility], [address] [place] [phone] Notes/Report: Hemoglobin A1c % 5.7 <6.0 % Hemoglobin A1C Reference Range Adults: 4.8 - 6.0 % Non diabetic: < 6.0 % Goal: < 7.0 % Additional Action Suggested: > 8.0 % Note: Hemoglobin A1c results are invalid for patients with abnormal amounts of HbF. Blood transfusions may impact the HbA1c concentration in the patient sample. Estimated Average Glucose 117 eAG = Estimated average glucose which is %A1C expressed as average glucose, using the formula of the G1J-Tciatwd Average Glucose study (ADAG), Diabetes Care, Vol.31,#8, Feb. 2007 UA ClnCatch+Micro w/rflx Cul t Reviewed date:06/10/2024 06:07:53 PM Interpretation: Performing Lab:[facility], [address] [place] [phone] Notes/Report: Urine, Clean Catch Color Urine Yellow Appearance Urine Cloudy PH 6.0 5.0-9.0 Glucose Urine UA Negative Negative mg/dL Urine Blood Negative Negative Specific Ruffin - Urine 1.020 1.005-1.025 Urine Protein Negative Neg-Trace mg/dL Urine Ketones Negative Negative mg/dL Nitrite Urine Negative Negative Leukocyte Esterase Urine Negative Negative RBC Urine 0-2 0-2 /HPF WBC Urine 0-5 0-5 /HPF Squamous Epithelial Cell Urine 0-2 0-2 /HPF Bacteria Urine None Seen None Seen Hyaline Casts Urine 0-2 0-2 /LPF REASON FOR VISIT yearly fasting labs Encounters Encounter Location Date Provider Diagnosis Yogi Samaniego MD [address] [place] [address] Drive [address] [place], [place] [phone] 06/10/2024 Yogi Samaniego Pure hypercholestero lemia E78.00 ; Prostatism N40.0 ; Benign essential hypertension I10 and Type 2 diabetes mellitus without complication, with no history of insulin use E11.9 Assessments Encounter Date Diagnosis (ICD Code) Assessment Notes Treatment Notes Treatment Clinical Notes Section Notes 06/10/2024 Pure hypercholesterolemia (ICD-10 - E78.00) 06/10/2024 Prostatism (ICD-10 - N40.0) 06/10/2024 Benign essential hypertension (ICD-10 - I10) 06/10/2024 Type 2 diabetes tesfaye itus without complication, with no history of insulin use (ICD-10 - E11.9) Plan Of Treatment Next Appt Details Provider Name:Yogi erazo, 12/14/2024 07:15:00 AM, [address] [place] [address], [address] [place] [address], [phone], Provider Name:Yogi erazo, 12/21/2024 10:00:00 AM, [address] [place] [address], [address] [place] [address], [phone], Provider Name:Yogi erazo, 06/28/2025 07:15:00 AM, [address] [place] [address], [address] [place] [address], [phone], Provider Name:Yogi erazo, 07/05/2025 09:30:00 AM, [address] [place] [address], [address] [place] [address], [phone], Progress Notes * Clarke BEEBEDOB:1960 (64 yo M)Acc No.[id number]:06/10/2024 Progress Note Patient:?Clarke BEEBE Provider:?Yogi Samaniego MD :1960???Age:64 Y???Sex:Male Lyndon e:06/10/2024 Address:[address] [place], [place] [address] Subjective: * Chief Complaints: * ???1. Yearly fasting labs. * Medical History:? Objective: * Vitals:? Assessment: * Assessment: 1.?Pure hypercholesterolemia - E78.00 (Primary)???2.?Prostatism - N40.0???3.?Benign essential hypertension - I10???4.?Type 2 diabetes mellitus without complication, with no history of insulin use - E11.9??? Plan: * Treatment: 2.?Prostatism?LAB: Complete Blood Count Auto Diff (Collection Date & Time - 06/10/2024 07:15 AM) ?LAB: [facility]. Panel Fast (Collection Date & Time - 06/10/2024 07:15 AM) ?LAB: Lipid Panel (Collection Date & Time - 06/10/2024 07:15 AM) ?LAB: PSA,Total (Free>4and<10) (Collection Date & Time - 06/10/2024 07:15 AM) ?LAB: Microalbumin, Random (Collection Date & Time - 06/10/2024 07:15 AM) ?LAB: Hemoglobin A1c (Collection Date & Time - 06/10/2024 07:15 AM) ?LAB: UA ClnCatch+Micro w/rflx Cult (Collection Date & Time - 06/10/2024 07:15 AM) 3.?Benign essential hyperten renetta?LAB: Complete Blood Count Auto Diff (Collection Date & Time - 06/10/2024 07:15 AM) ?LAB: [facility]. Panel Fast (Collection Date & Time - 06/10/2024 07:15 AM) ?LAB: Lipid Panel (Collection Date & Time - 06/10/2024 07:15 AM) ?LAB: PSA,Total (Free>4and<10) (Collection Date & Time - 06/10/2024 07:15 AM) ?LAB: Microalbumin, Random (Collection Date & Time - 06/10/2024 07:15 AM) ?LAB: Hemoglobin A1c (Collection Date & Time - 06/10/2024 07:15 AM) ?LAB: UA ClnCatch+Micro w/rflx Cult (Collection Date & Time - 06/10/2024 07:15 AM) 4.?Type 2 diabetes mellitus without complication, with no history of insulin use?LAB: Complete Blood Count Auto Diff (Collection Date & Time - 06/10/2024 07:15 AM) ?LAB: [facility]. Panel Fast (Collection Date & Time - 06/10/2024 07:15 AM) ?LAB: Lipid Panel (Collection Date & Time - 06/10/2024 07:15 AM) ?LAB: PSA,Total (Free>4and<10) (Collection Date & Time - 06/10/2024 07:15 AM) ?LAB: Microalbumin, Random (Collection Date & Time - 06/10/2024 07:15 AM) ?LAB: Hemoglobin A1c (Collection Date & Time - 06/10/2024 07:15 AM) ?LAB: UA ClnCatch+Micro w/rflx Cult (Collection Date & Time - 06/10/2024 07:15 AM) * Procedure Codes:?63702 VENIP UNCT, ROUTINE* * * The named appointment provid er may or may not be the originator of this progress note, and it is not deemed complete until electronically signed by the appointment provider. Sign off status: Pending * Provider:?Yogi Samaniego MD Date:?1 08/10/2023 Generated for Ilan escalona/Chencho/eTmatismitting on:?09/23/2024 12:58 PM EST
--- OUTSIDE RECORDS SUMMARY | 2024-09-23 12:58 | XMS_ITS ---
Author Organization Yogi Samaniego MD Address [address] [place], [place] [phone] Care Team Providers Care Motion Study Technician Name Role Phone Yogi Samaniego Primary Care Provider Results Component Value Reference Range Notes Liver Panel (Not yet reviewe d by provider) Interpretation: Performing Lab:[address] [phone] Notes/Report: Bilirubin Total 1.1 0.0-1.0 mg/dL Bilirubin Direct 0.4 0.0-0.5 mg/dL Aspartate Amino Transferase 27 5-37 U/L Alanine Aminotransferase 30 0-40 U/L Total Protein 7.7 6.5-8.0 g/dL Albumin Level 4.0 3.5-5.0 g/dL Alkaline Phosphatase 72 39-117 U/L Glucose Fasting (Not yet rev iewed by provider) Interpretation: Performing Lab:[facility], [address] [place] [phone] Notes/Report: Glucose Fasting 104 60-99 mg/dL A fasting glucose from 100-125 mg/dl is considered impaired (pre-diabetes). Lipid Panel (Not yet reviewe d by provider) Interpretation: Performing Lab:[address] [phone] Notes/Report: Triglycerides 143 <150 mg/dL Desirable Triglyceride: less than 150 mg/dL Borderline High Triglyceride 150-199 mg/dL High Triglyceride: 200-499 mg/dL Very High Triglyceride: greater than or equal to 5OO mg/dL Cholesterol 127 <200 mg/dL Desirable Cholesterol: less than 200 mg/dL Borderline High Cholesterol: 200-239 mg/dL High Cholesterol: greater than 239 mg/dL LDL Cholesterol Calculated 66 <100 mg/dL Desirable LDL: less than 100 mg/dL Near Optimal/Above Optimal LDL: 110-129 mg/dL Borderline High LDL: 130-159 mg/dL High LDL: 160-189 mg/dL Very High LDL: greater than or equal to 190 mg/dL HDL Cholesterol 33 >40 mg/dL Desirable HDL: greater than 40 mg/dL Note: This HDL assay may give artificially low results in patients with liver disease. Hemoglobin A1c (Not yet revi ewed by provider) Interpretation: Performing Lab:[address] [phone] Notes/Report: Hemoglobin A1c % 5.8 <6.0 % Hemoglobin A1C Reference Range Adults: 4.8 - 6.0 % Non diabetic: < 6.0 % Goal: < 7.0 % Additional Action Suggested: > 8.0 % Note: Hemoglobin A1c results are invalid for patients with abnormal amounts of HbF. Blood transfusions may impact the HbA1c concentration in the patient sample. Estimated Average Glucose 120 eAG = Estimated average glucose which is %A1C expressed as average glucose, using the formula of the S3K-Weujkgw Average Glucose study (ADAG), Diabetes Care, Vol.31,#8, Feb. 2007 REASON FOR VISIT LIPID, LIVER PANEL FASTING Encounters Encounter Location Date Provider Diagnosis Yogi Samaniego MD [address] [place] [address] [address] [place], [place] [phone] 09/23/2024 Yogi Samaniego Pure hypercholestero lemia E78.00 and Type 2 diabetes mellitus without complication, with no history of insulin use E11.9 Assessments Encounter Date Diagnosis (ICD Code) Assessment Notes Treatment Notes Treatment Clinical Notes Section Notes 09/23/2024 Pure hypercholesterolemia (ICD-10 - E78.00) 09/23/2024 Type 2 diabetes tesfaye itus without complication, with no history of insulin use (ICD-10 - E11.9) Plan Of Treatment Pending Test Test Name Order Date Glucose Fasting 09/23/2024 Hemoglobin A1c 09/23/2024 Liver Panel 09/23/2024 Lipid Panel 09/23/2024 Next Appt Details Provider Name:Yogi erazo, 12/14/2024 07:15:00 AM, [address] [place] [address], [address] [facility], [place], [place], [phone], Provider Name:Yogi erazo, 12/21/2024 10:00:00 AM, [address] [place] [address], [address], [place], [place], [phone], Provider Name:Yogi erazo, 06/28/2025 07:15:00 AM, [address] [place] [address], [address], [place], [place], [phone], Provider Name:Yogi ferrellr, 07/05/2025 09:30:00 AM, [address] [place] [address], [address], [place], [place], [phone], Progress Notes * Clarke BEEBEDOB:1960 (64 yo M)Acc No.[id number]:09/23/2024 Progress Note Patient:?Clarke BEEBE Provider:?Yogi Samaniego MD :1960???Age:64 Y???Sex:Male Lyndon e:09/23/2024 Address: [address] [id number] Subjective: * Chief Complaints: * ???1. LIPID, LIVER PANEL FAS TING. * Medical History:? Objective: * Vitals:? Assessment: * Assessment: 1.?Pure hypercholesterolemia - E78.00 (Primary)???2.?Type 2 diabetes mellitus without complication, with no history of insulin use - E11.9??? Plan: * Treatment: 2.?Type 2 diabetes mellitus without complication, with no history of insulin use?LAB: Liver Panel (Collection Date & Time - 09/23/2024 07:30 AM) ?LAB: Glucose Fasting (Collection Date & Time - 09/23/2024 07:30 AM) ?LAB: Lipid Panel (Collection Date & Time - 09/23/2024 07:30 AM) ?LAB: Hemoglobin A1c (Collection Date & Time - 09/23/2024 07:30 AM) * Procedure Codes:?85883 VENIP UNCT, ROUTINE* * * The named appointment provid er may or may not be the originator of this progress note, and it is not deemed complete until electronically signed by the appointment provider. Sign off status: Pending * Provider:?Yogi Samaniego MD Date:?0 09/23/2024 Generated for Ilan escalona/Chencho/Pamelaitting on:?09/23/2024 12:57 PM EST
--- OUTSIDE RECORDS SUMMARY | 2024-09-23 12:58 | XMS_ITS ---
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 Name Role Phone Yogi Samaniego Primary Care Provider Allergies Allergen (clinical drug ingredient) Drug/Non Drug Allergy documented on EMR Reaction Allergy Type Onset Date Status morphine Morphine Sulfate N/V Drug Allergy Active REASON FOR VISIT review labs Medications Medication SIG (Take, Route, Frequency, Duration) Notes Start Date End Date Status Metoprolol Tartrate 50 MG TAKE 1 TABLET BY MOUTH TWICE A DAY WITH FOOD Active Valtrex 500 MG 1 tablet Orally twic e a day for 3 days 10/16/2023 Not-Taking dilTIAZem HCl ER Coated Beads 240 MG TAKE ONE CAPSULE BY MOUTH EVERY DAY ORALLY ONCE A DAY 90 DAYS Active Ibuprofen 800 MG 1 tablet Orally Thre e times a day for 30 days Active Lisinopril-hydroCHLOROthi azide 10-12.5 MG TAKE 1 TABLET BY MOUTH EVERY DAY FOR 90 DAYS Active Aspirin 325 MG 1 tablet Orally Once a day for 30 day(s) Active Atorvastatin Calcium 40 MG 1 tablet Orally Once a day for 30 days 06/22/2024 Active Flecainide Acetate 150 MG TAKE 1/2 TABLE T BY MOUTH TWICE A DAY Orally every 12 hrs for 90 days Active Social History Tobacco Use: Social History Observation Description Date Details (start date - stop date) Never Smoker NA - NA Tobacco Use/Smoking Question Answer Notes Patient is a nonsmoker Additional Findings: Tobacco Non-User Cu rrent non-smoker, currently using no form of tobacco Alcohol Screen Question Answer Notes Did you have a drink contain ing alcohol in the past year? Yes How often did you have a dri nk containing alcohol in the past year? 2 to 4 times a month (2 points) How many drinks did you have on a typical day when you were drinking in the past year? 1 or 2 drinks (0 point) How often did you have 6 or more drinks on one occasion in the past year? Never (0 point) Points 2 Interpretation Negative Vital Signs Blood pressure systolic 140 mm Hg 06/22/20 24 Blood pressure diastolic 80 mm Hg 024 Height 70 in 06/22/2024 Weight 300 lbs 06/22/2024 BMI 43.04 kg/m2 06/22/2024 Encounters Encounter Location Date Provider Diagnosis Yogi Samaniego MD [address] [place] [address] [place] [id number] 06/22/2024 Yogi Samaniego Type 2 diabetes tesfaye itus without complication, with no history of insulin use E11.9 ; BMI 40.0-44.9, adult Z68.41 ; Benign essential hypertension I10 and Pure hypercholesterolemia E78.00 Assessments Encounter Date Diagnosis (ICD Code) Assessment Notes Treatment Notes Treatment Clinical Notes Section Notes 06/22/2024 Type 2 diabetes tesfaye itus without complication, with no history of insulin use (ICD-10 - E11.9) stable, will continue current regiment 06/22/2024 BMI 40.0-44.9, adult (ICD-10 - Z68.41) advised on diet and exerice benefits 06/22/2024 Benign essential hypertension (ICD-10 - I10) stable, will continue curent regiment 06/22/2024 Pure hypercholesterolemia (ICD-10 - E78.00) stable, will continue to monitor Plan Of Treatment Medication Medication Name Sig Start Date Stop Date Notes Metoprolol Tartrate 50 MG TAKE 1 TABLET BY MOUTH TWICE A DAY WITH FOOD dilTIAZem HCl ER Coated Bead s 240 MG TAKE ONE CAPSULE BY MOUTH EVERY DAY ORALLY ONCE A DAY 90 DAYS Lisinopril-hydroCHLOROthiazi de 10-12.5 MG TAKE 1 TABLET BY MOUTH EVERY DAY FOR 90 DAYS Atorvastatin Calcium 40 MG 1 tablet Oral ly Once a day for 30 days 06/22/2024 Treatment Notes Assessment Notes Type 2 diabetes mellitus wit hout complication, with no history of insulin use stable, will continue current regiment BMI 40.0-44.9, adult advised on diet and exerice benefits Benign essential hypertension stable, wi ll continue curent regiment Pure hypercholesterolemia stable, will c ontinue to monitor Pending Test Test Name Order Date Liver Panel 06/22/2024 Lipid Panel 06/22/2024 Next Appt Details Follow Up: 6 Months, Reason: Provider Name:Yogi erazo, 12/14/2024 07:15:00 AM, [address] [place] [address], [address], [phone], Provider Name:Yogi erazo, 12/21/2024 10:00:00 AM, [address] [place] [address], [address], [phone], Provider Name:Yogi erazo, 06/28/2025 07:15:00 AM, [address] [place] [address], [address], [phone], Provider Name:Yogi erazo, 07/05/2025 09:30:00 AM, [address] [place] [address], [address], [phone], Progress Notes * Clarke BEEBEDOB:1960 (64 yo M)Acc No.[id number]:06/22/2024 Patient:?Clarke Beebe Provider:?Yogi Samaniego MD :1960???Age:64 Y???Sex:Male Lyndon e:06/22/2024 Address:[address] [place] [address] [id number] Subjective: * Chief Complaints: * ???Review labs * HPI: ???Depression Screening:?PHQ-9?Little interest or pleasure in doing things?Not at all,?Feeling down, depressed, or hopeless?Not at all,?Trouble falling or staying asleep, or sleeping too much?Not at all,?Feeling tired or having little energy?Not at all,?Poor appetite or overeating?Not at all,?Feeling bad about yourself or that you are a failure, or have let yourself or your family down?Not at all,?Trouble concentrating on things, such as reading the newspaper or watching television?Not at all,?Moving or speaking so slowly that other people could have noticed; or the opposite, being so fidgety or restless that you have been moving around a lot more than usual?Not at all,?Thoughts that you would be better off or of hurting yourself in some way?Not at all,?Total Score?0.?Interpretation and Intervention?Depression Screening Findings?Negative,?Follow-Up for Depression?: review of PHQ-9 found negative result, no follow-up needed.?Communication Needs:?Communication Needs?Does the patient have a hearing impairment?No,?Does the patient have a vision impairment??Yes,?If yes, what is the vision impairment??Glasses,?Does the patient have a cognition impairment??No.?SDOH Questions:?SDOH Questions?In the past year have you been worried about losing housing??No,?In the past year have you or any family members you live with been unable to get any of the following when it was really needed? Check all that apply:?None.?Fall Risk:?History?Have you had any falls with injury in the past year??No,?Have you had two or more falls in the past year??No.? * ROS:?General/Constitutional:?Change in appetite?denies.?Chills?denies.?Fever?denies.?Ophthalmologic:?Blurred vision?denies.?Discharge?denies.?Pain?denies.?ENT:?Decreased hearing?denies.?Sore throat?denies.?Swollen glands?denies.?Endocrine:?Cold intolerance?denies.?Excessive thirst?denies.?Heat intolerance?denies.?Weight loss?denies.?Respiratory:?Cough?denies.?Shortness of breath at rest?denies.?Shortness of breath with exertion?denies.?Wheezing?denies.?Cardiovascular:?Chest pain at rest?denies.?Chest pain with exertion?denies.?Irregular heartbeat?denies.?Shortness of breath?denies.?Gastrointestinal:?Abdominal pain?denies.?Change in bowel habits?denies.?Diarrhea?denies.?Nausea?denies.?Rectal bleeding?denies.?Vomiting?denies .?Genitourinary:?Blood in urine?denies.?Difficulty urinating?denies.?Frequent urination?denies.?Musculoskeletal:?Painful joints?denies.?Weakness?denies.?Skin:?Dry skin?denies.?Itching?denies.?Denies?Mole(s),? changes in moles, new moles or any lesions of concern.?Denies?Photosensitivity.?Rash?denies.?Neurologic:?Dizziness?denies.?Fainting?denies.?Headache?denies.? * Medical History:? * Surgical History:? * Hospitalization/Major Diagno stic Procedure:? * Family History:?Father: dece ased 44 yrs, colon cancer, diagnosed with Cancer.?Mother: alive 85 yrs.?3 brother(s) , 2 sister(s) . 1 son(s) , 1 daughter(s) . .? mother -healthy FATHER COLON CANCER, No pertinent family medical history, Denies mental health/substance abuse family history, No pertinent family medical history, Denies mental health/substance abuse family history. * Social History:?Tobacco Use:?Tobacco Use/Smoking?Patient is a?nonsmoker,?Additional Findings: Tobacco Non-User?Current non-smoker, currently using no form of tobacco.?Drugs/Alcohol:?Alcohol Screen?Did you have a drink containing alcohol in the past year??Yes,?How often did you have a drink containing alcohol in the past year??2 to 4 times a month (2 points),?How many drinks did you have on a typical day when you were drinking in the past year??1 or 2 drinks (0 point),?How often did you have 6 or more drinks on one occasion in the past year??Never (0 point),?Points?2,?Interpretation?Negative.?Miscellaneous:?Caffeine: yes, 1-2 cups per day. Children: yes. no Exercise. Home smoke detector use: yes. Marital status: . Occupation: weeks/months/years, retired. Pets: none. no Travel outside of the [place]. * Medications:?TakingAspirin 3 25 MG Tablet 1 tablet Orally Once a dayLisinopril-hydroCHLOROthiazide 10-12.5 MG Tablet TAKE 1 TABLET BY MOUTH EVERY DAY FOR 90 DAYS Flecainide Acetate 150 MG Tablet TAKE 1/2 TABLET BY MOUTH TWICE A DAY Orally every 12 hrsIbuprofen 800 MG Tablet 1 tablet Orally Three times a daydilTIAZem HCl ER Coated Beads 240 MG Capsule Extended Release 24 Hour TAKE ONE CAPSULE BY MOUTH EVERY DAY ORALLY ONCE A DAY 90 DAYS Metoprolol Tartrate 50 MG Tablet TAKE 1 TABLET BY MOUTH TWICE A DAY WITH FOOD Taking Aspirin 325 MG Tablet 1 tablet Orally Once a dayTaking Lisinopril-hydroCHLOROthiazide 10-12.5 MG Tablet TAKE 1 TABLET BY MOUTH EVERY DAY FOR 90 DAYS Taking Flecainide Acetate 150 MG Tablet TAKE 1/2 TABLET BY MOUTH TWICE A DAY Orally every 12 hrsTaking Ibuprofen 800 MG Tablet 1 tablet Orally Three times a dayTaking dilTIAZem HCl ER Coated Beads 240 MG Capsule Extended Release 24 Hour TAKE ONE CAPSULE BY MOUTH EVERY DAY ORALLY ONCE A DAY 90 DAYS Taking Metoprolol Tartrate 50 MG Tablet TAKE 1 TABLET BY MOUTH TWICE A DAY WITH FOOD Not-Taking/PRNValtrex 500 MG Tablet 1 tablet Orally twice a dayMedication List reviewed and reconciled with the patientNot-Taking/PRN Valtrex 500 MG Tablet 1 tablet Orally twice a dayMedication List reviewed and reconciled with the patient * Allergies:?Morphine Sulfate: N/Vyes[Allergies Verified] Objective: * Vitals:?Ht: 70, Wt:300, BMI: 43.04, BP:140/80, Wt-k.08. * ???Past Orders: ???Lab:Lipid Panel (Order Da te 06/10/2024) (Collection Date - 06/10/2024) ? Value Reference Range ?Triglycerides 185 H <150 - mg/dL ?Cholesterol 210 H <200 - m g/dL ?LDL Cholesterol Calculated 138 H <100 - mg/dL ?HDL Cholesterol 35 L >40 - mg/dL ???Lab:PSA,Total (Free>4and< 10) (Order Date - 06/10/2024) (Collection Date - 06/10/2024) ? Value Reference Range ?PSA,Total (Free>4and<10) 0.57 0.00-4.00 - ng/mL ???Lab:Microalbumin, Random (Order 06/10/2024) (Collection Date - 06/10/2024) ? Value Reference Range ?Creatinine Urine 158.80 - m g/dL ?Microalbumin Urine 25.0 - mg/L ?Microalbum Creatinine Ratio Ur 15.7 <30 - ug/mg cr ???Lab:Hemoglobin A1c (Order Date - 06/10/2024) (Collection Date - 06/10/2024) ? Value Reference Range ?Hemoglobin A1c % 5.7 <6. 0 - % ?Estimated Average Glucose 117 - mg/dL ???Lab:Complete Blood Count Auto Diff (Order Date - 06/10/2024) (Collection Date - 06/10/2024) ? Value Reference Range ?White Blood Count 8.5 4. 8-10.8 - X10*3/uL ?Red Blood Count 5.11 4.60 -5.80 - X10*6/uL ?Hemoglobin 15.7 14.0-18.0 - g/dl ?Hematocrit 46.5 42.0-52.0 - % ?Mean Corpuscular Volume 91.0 80.0-98.0 - fL ?Mean Corpuscular Hemoglobin 30.7 27.0-33.0 - pg ?Mean Corpuscular HGB Conc 33.8 31.0-36.0 - g/dl ?Red Cell Distribution Width 13.2 11.0-16.0 - % ?Platelet Count 265 160-4 00 - X10*3/uL ?Mean Platelet Volume 10.3 9.4-12.4 - fL ?Neutrophils Percent Auto 58.1 45-73 - % ?Imm Gran Pct Auto 0.4 0. 0-0.4 - % ?Lymphocytes Percent Auto 29.0 20-40 - % ?Monocytes Percent Auto 9.0 2-11 - % ?Eosinophils Percent Auto 2.8 0-4 - % ?Basophils Percent Auto 0.7 0-2 - % ?NRBC Pct Auto 0.0 0.0-0. 2 - /100WBC ?Neutrophils Absolute Auto 5.0 2.0-8.3 - x10*3/uL ?Imm Gran Abs Auto 0.03 0. 00-0.03 - X10*3/uL ?Lymphocytes Absolute Auto 2.5 1.2-4.9 - X10*3/uL ?Monocytes Absolute Auto 0.8 0.1-1.2 - X10*3/uL ?Eosinophils Absolute Auto 0.2 0.0-0.4 - X10*3/uL ?Basophils Absolute Auto 0.1 0.0-0.2 - X10*3/uL ?NRBC Abs Auto 0.000 0.0-0. 012 - X10*3/uL ???Lab:Comprehensive [place]. P jeferson Fast (Order Date - 06/10/2024) (Collection Date - 06/10/2024) ? Value Reference Range ?Sodium 140 135-145 - mmo l/L ?Bilirubin Total 0.8 0.0- 1.0 - mg/dL ?Aspartate Amino Transferase 36 5-37 - U/L ?Alanine Aminotransferase 46 H 0-40 - U/L ?Total Protein 7.5 6.5-8. 0 - g/dL ?Albumin Level 4.0 3.5-5. 0 - g/dL ?Alkaline Phosphatase 64 39-117 - U/L ?Potassium 4.2 3.3-5.1 - mmol/L ?Chloride 105 96-108 - mm ol/L ?Carbon Dioxide 30 H 22-29 - mmol/L ?Anion Gap 9 L 12-20 - ?Blood Urea Nitrogen 18 H 9-16 - mg/dL ?Creatinine 1.04 0.5-1.4 - mg/dL ?Estimated Glomerular Filt Rate > 60 - ?Glucose Fasting 105 H 60-9 9 - mg/dL ?Calcium 9.3 8.4-10.2 - m g/dL * Examination: ???General Examination: ?GENERAL APPEARANCE:?well developed, well nourished, in no acute distress.?HEAD:?normocephalic, atraumatic.?EYES:?pupils equal, round, reactive to light and accommodation, sclera non-icteric.?EARS:?normal.?ORAL CAVITY:?mucosa moist.?THROAT:?clear.?NECK/THYROID:?neck supple, full range of motion, no cervical lymphadenopathy, no bruits.?SKIN:?warm and dry, no suspicious lesions.?HEART:?regular rate and rhythm, S1, S2 normal, no murmurs.?LUNGS:?clear to auscultation bilaterally.?ABDOMEN:?soft, nontender, nondistended, bowel sounds present, normal, no organomegaly , no masses palpable.?RECTAL EXAM:?declined.?MALE GENITOURINARY:?uncircumcised , no penile lesions or discharge , no testicular mass , testes descended bilaterally.?EXTREMITIES:?no clubbing, cyanosis, or edema.?NEUROLOGIC:?nonfocal, motor strength normal upper and lower extremities, sensory exam intact.? Assessment: * Assessment: 1.?Type 2 diabetes mellitus without complication, with no history of insulin use - E11.9 (Primary)?2.?BMI 40.0-44.9, adult - Z68.41?3.?Benign essential hypertension - I10?4.?Pure hypercholesterolemia - E78.00? Plan: * Treatment: 2.?BMI 40.0-44.9, adult? Notes: advised on diet and exerice benefits?? 3.?Benign essential hyperten renetta? Continue Lisinopril-hydroCHLOROthiazide Tablet, 10-12.5 MG, TAKE 1 TABLET BY MOUTH EVERY DAY FOR 90 DAYS;?Continue dilTIAZem HCl ER Coated Beads Capsule Extended Release 24 Hour, 240 MG, TAKE ONE CAPSULE BY MOUTH EVERY DAY ORALLY ONCE A DAY 90 DAYS;?Continue Metoprolol Tartrate Tablet, 50 MG, TAKE 1 TABLET BY MOUTH TWICE A DAY WITH FOOD.?? Notes: stable, will continue curent regiment?? 4.?Pure hypercholesterolemia ? Notes: stable, will continue to monitor?? * Procedure Codes:? * Preventive Medicine:? ??Counseling:?Care goal follow-up plan:?Counseling for abnormal BMI provided?Yes,?Above Normal BMI Follow-up?Giving encouragement to exercise.? ??Diabetes Care Plan:?Patient Lifestyle Goals?Needs to maintain diet control.?Treatment Goals?A1C< 7.?Barriers ?No specific barriers, doing well.?Self-Managment Plan?Increase light exercise to 3 times a week for 30 minutes.?Expected Outcome maintaining stable blood sugar levels within a target range.? * Follow Up:?6 Months * * Sign off status: Completed true * Provider:?Yogi Samaniego MD Date:?1 08/22/2023 Generated for Ilan escalona/Chencho/eTransmitting on:?09/23/2024 12:58 PM EST History and Physical Notes * HPI (History of Present Illness) Category Sub-Category Detail Notes Category Not es Depression Screening PHQ-9 Little inte rest or pleasure in doing things: Not at all Feeling down, depressed, or hopeless: No t at all Trouble falling or staying asleep, or sl eeping too much: Not at all Feeling tired or having little energy: N ot at all Poor appetite or overeating: Not at all Feeling bad about yourself o r that you are a failure, or have let yourself or your family down: Not at all Trouble concentrating on thi ngs, such as reading the newspaper or watching television: Not at all Moving or speaking so slowly that other people could have noticed; or the opposite, being so fidgety or restless that you have been moving around a lot more than usual: Not at all Thoughts that you would be b rhonda off or of hurting yourself in some way: Not at all Total Score: 0 Interpretation and Intervention Depression Buck dejesus Findings: Negative Follow-Up for Depression: : review of PH Q-9 found negative result, no follow-up needed SDOH Questions SDOH Questions In the past year have you been worried about losing housing?: No In the past year have you or any family members you live with been unable to get any of the following when it was really needed? Check all that apply:: None Fall Risk History Have you had any falls with injury i n the past year?: No Have you had two or more falls in the year?: No Communication Needs Communication Needs Does the patient have a hearing impairment: No Does the patient have a vision impairmen t?: Yes ?If yes, what is the vision impairment?: Glasses Does the patient have a cognition impair ment?: No Examination Category Sub-Category Detail Notes Category Not es General Examination GENERAL APPEARANCE: well dev eloped, well nourished, in no acute distress HEAD: normocephalic, atrau matic EYES: pupils equal, round, reactive to light and accommodation, sclera non- icteric EARS: normal THROAT: clear NECK/THYROID: neck supple, full ra nge of motion, no cervical lymphadenopathy, no bruits HEART: regular rate and rhy thm, S1, S2 normal, no murmurs LUNGS: clear to auscultatio n bilaterally ABDOMEN: soft, nontender, non distended, bowel sounds present, normal, no organomegaly , no masses palpable NEUROLOGIC: nonfocal, motor stre ngth normal upper and lower extremities, sensory exam intact SKIN: warm and dry, no maximino picious lesions EXTREMITIES: no clubbing, cyanosi s, or edema MALE GENITOURINARY: uncircumcised , no p enile lesions or discharge , no testicular mass , testes descended bilaterally RECTAL EXAM: declined ORAL CAVITY: mucosa moist
--- OUTSIDE RECORDS SUMMARY | 2024-09-23 12:59 | XMS_ITS ---
[facility] Organization [facility] More[facility] Address [address] [place] [address] Care Team Providers Care Rag Willow Operator Name Role Phone Yogi Samaniego MD Primary Care Provider Fercho Nielsen Unavailable [phone] Karin Stoo Unavailable [phone] Allergies Allergen (clinical drug ingredient) Drug/Non Drug Allergy documented on EMR Reaction Allergy Type Onset Date Status morphine Morphine nausea Drug Allergy Active REASON FOR VISIT Open sore - Toe Medications Medication SIG (Take, Route, Frequency, Duration) Notes Start Date End Date Status Aspir-81 Not-Taking Birgit Aspirin 325 MG 1 tablet Orally Onc e a day for 30 day(s) Not-Taking Cephalexin 500 MG 1 tablet Orally Twice a day for 10 day(s) Not-Taking dilTIAZem HCl ER Coated Beads 240 MG TAKE ONE CAPSULE BY MOUTH EVERY DAY Oral for 90 Not-Taking Doxycycline Hyclate 100 MG TAKE 1 TABLET (ORAL) 2 TIMES PER DAY FOR 7 DAYS Oral for 7 Not-Taking Metoprolol Tartrate 50 MG 1 tablet with food Orally Twice a day for 30 day(s) 05/02/2021 Active dilTIAZem HCl ER Beads 240 MG 1 capsule Orally Once a day for 30 day(s) Active Flecainide Acetate 150 MG as directed Orally 05/02 Active Ibuprofen 800 MG TAKE 1 TABLET BY MOUTH 3 TIMES A DAY Oral for 30 PRN Active Lisinopril 2.5 MG 1 tablet Orally Once a day for 30 day(s) Active methylPREDNISolone 4 MG TAKE 6 TABLETS O N DAY 1 DIRECTED ON PACKAGE AND DECREASE BY 1 TAB EACH DAY FOR A TOTAL OF 6 DAYS Oral for 6 Not-Taking Triamcinolone Acetonide 0.025 % APPLY 1 APPLICATION (TOPICAL) 2 TIMES PER DAY FOR 14 DAYS External for 14 Not-Taking Birgit Aspirin 325 MG 1 tablet Orally Onc e a day for 30 day(s) 05/02/2021 Active Flecainide Acetate N ot-Taking Social History Tobacco use other than smoking: Question Answer Notes Are you an other tobacco user? No Problems Problem Type SNOMED Code ICD Code Onset Dates Problem Status W/U Status Risk Notes Problem Skin ulcer of toe of left foot with fat layer exposed (L97.522) Active confirmed Problem Skin ulcer of toe of right foot with fat layer exposed (L97.512) Active confirmed Vital Signs Height 5ft 9in in 06/15/2024 Weight 300 lbs 06/15/2024 BMI 44.3 kg/m2 06/15/2024 Procedures Procedure Date Ordered Date Performed Result Body Sit e 88438-[id number] SKIN/TISSUE 06/15/2024 N/A Encounters Encounter Location Date Provider Diagnosis [facility] [address] [address] 06/15/2024 Karin Soto Skin ulcer of toe of left foot with fat layer exposed L97.522 Assessments Encounter Date Diagnosis (ICD Code) Assessment Notes Treatment Notes Treatment Clinical Notes Section Notes 06/15/2024 Skin ulcer of toe of left foot with fat layer exposed (ICD-10 - L97.522) Patient Educated with: WOUND CARE INSTRUCTIONS.p df (WOUND CARE INSTRUCTIONS.p df) 06/15/2024 Other Plan Of Treatment Treatment Notes Assessment Notes Skin ulcer of toe of left fo ot with fat layer exposed Patient Educated with: WOUND CARE INSTRUCTIONS.pdf (WOUND CARE INSTRUCTIONS.pdf) Pending Test Test Name Order Date [id number] SKIN/TISSUE 06/15/2024 Next Appt Details Follow Up: prn, Reason: Procedure Notes * Category Sub-Category Detail Notes Debride skin and subQ Open wound Physician of record performed open wound selective debridement of devitalized necrotic/nonviable soft tissue, fibrin, exudate, epidermis, dermis, thru skin and subcutaneous fat tissue, first 20 sq cm or less, using sharp dissection with sterile 15 blade, and/or tissue nippers. ANESTHESIA- was accomplished TOPICALLY with Lidocaine Hydrochloride Jelly 2 percent, Sterile antibiotic dressing applied. Hemostasis was controlled through direct pressure. Post debridement measurements: _4_ mm x 5 mm x 3mm. Character of the wound post debridement is stable (82834) Progress Notes * Clarke BEEBEDOB:1960 (64 yo M)Acc No.[id number]:06/15/2024 Progress Notes Patient:?Clarke BEEBE Provider:?Karin Soto DPM :1960???Age:64 Y???Sex:Male Lyndon e:06/15/2024 Address: [address] [facility], [id number] Pcp:Yogi Samaniego MD Subjective: * Chief Complaints: * ???Open sore - Toe * HPI: ???Skin problems:?Nature:?Open sore.?Onset/Cause:?PNA.?Treatments:?Topical abx, soaks.?Misc:?denies any pain.? * ROS:?General/Constitutional:?Nausea?denies.?Vomiting?denies.?Hunger Thirst?denies.?Loss appetite?denies.?Chills?denies.?Fatigue?denies.?Fever?denies.?Night Sweats?denies.?Unexplained weight loss?denies.?Unexplained [...] Procedure:?No Hospitalization History. * Family History:?Mother: helena e, arthritis , foot problems,, diagnosed with Diabetic [...] ?Children: unknown. ?Marital status: . 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 * Medications:?TakingBayer Asp irin 325 MG Tablet 1 tablet Orally Once a day dilTIAZem HCl ER Beads 240 MG Capsule Extended Release 24 Hour 1 capsule Orally Once a day Flecainide Acetate 150 MG Tablet as directed Orally Ibuprofen 800 MG Tablet TAKE 1 TABLET BY MOUTH 3 TIMES A DAY Oral , Notes to Pharmacist: PRNLisinopril 2.5 MG Tablet 1 tablet Orally Once a day Metoprolol Tartrate 50 MG Tablet 1 tablet with food Orally Twice a day Taking Birgit Aspirin 325 MG Tablet 1 tablet Orally Once a day Taking dilTIAZem HCl ER Beads 240 MG Capsule Extended Release 24 Hour 1 capsule Orally Once a day Taking Flecainide Acetate 150 MG Tablet as directed Orally Taking Ibuprofen 800 MG Tablet TAKE 1 TABLET BY MOUTH 3 TIMES A DAY Oral , Notes to Pharmacist: PRNTaking Lisinopril 2.5 MG Tablet 1 tablet Orally Once a day Taking Metoprolol Tartrate 50 MG Tablet 1 tablet with food Orally Twice a day Not-Taking/PRNAspir-81 Birgit Aspirin 325 MG Tablet 1 tablet Orally Once a day Cephalexin 500 MG Tablet 1 tablet Orally Twice a day dilTIAZem HCl ER Coated Beads 240 MG [...] MG Tablet 1 tablet Orally Once a day Not-Taking/PRN Cephalexin 500 MG Tablet 1 tablet Orally Twice a day Not-Taking/PRN dilTIAZem HCl ER Coated Beads 240 MG [...] * Allergies:?Morphine: nauseay es[Allergies Verified] Objective: * Vitals:?Ht: 5ft 9in, Wt:300, BMI:44.3, Shoe size: 12.5-13, Ht-cm: 175.26 cm, Wt- k.08 kg. * Examination: ???Dermatologic: ?ULCER:?LOCATION, Dorsal, TA lateral nail border,?SIZE, 4 mm X 3 mm X 2- 3mm, BASE, fibro-granular, RIM, hyperkeratotic, UNDERMINING, mild, TRACKING, Sub Q with Fat layer exposed, DRAINAGE, serosanguineous, moderate, NECROTIC TISSUE, loosely-adherent, yellow slough, MALODOR, absent, CALOR, trace, ERYTHEMA, trace.? Assessment: * Assessment: 1.?Skin ulcer of toe of left foot with fat layer exposed - L97.522 (Primary)???Specify :TA??? Plan: * Treatment: * Procedures:?Debride skin and subQ:?Open wound?Physician of record performed open wound selective debridement of devitalized necrotic/nonviable soft tissue, fibrin, exudate, epidermis, dermis, thru skin and subcutaneous fat tissue, first 20 sq cm or less, using sharp dissection with sterile 15 blade, and/or tissue nippers. ANESTHESIA- was accomplished TOPICALLY with Lidocaine Hydrochloride Jelly 2 percent, Sterile antibiotic dressing applied. Hemostasis was controlled through direct pressure. Post debridement measurements: _4_ mm x 5 mm x 3mm. Character of the wound post debridement is stable (23393).? * Procedure Codes:?57731 DEBRI DE SKIN/TISSUE * Preventive Medicine:? ??Counseling:?Ulcer:?A detailed plan of care was reviewed with the patient. We emphasized the fact that the patient takes on an active participating role in the treatment process and emphasized to them that they are an included, valued, and important member of the wound healing team in order to reach an expedient successful outcome. The patient agreed to follow their medically recommended diet while increasing their protein intake if safely able to do so, maintain proper bodily hydaration, abide by weight-bearing restrictions at all times, quit all current smoking habits if any, and diligently follow any/all dressing change instructions. It was clearly made known to the patient that if they fail to do their part, they will likely extend their course of treatment as well as possibly increase their risk of adverse events including amputation. The patient was instructed on importance of proper wound care consisting of pressure reduction, and proper maintainance of a moist wound environment. The patient is to cleanse the wound with warm soapy water/peroxide/saline, or betadine BID based on product availability. The patient is to apply ( Neosporin, Polysporin, or Triple, ) Antibiotic to the wound and cover with a DSD as directed. The patient was instructed to change dressings according to orders, or PRN saturation, leaks. The patient was instructed to monitor and report any signs or symptoms of infection or any untoward reactions. Precautions Taken: Offloading/Pressure reduction via rest/ limited activity to essential to daily life only, shoe modification, accommodative padding, sharp debridement, and take/apply medication as directed. THE GOALS of wound debridement to remove devitilized tissue, decrease risk for infection, promote wound healing and prevent further complication were discussed/reviewed. Debridement frequency as indicated, Given recent successful results to treatment, The patient is to cont the local wound care as directed till completely healed.? * Follow Up:?prn * Images: * Sign off status: Completed true * Provider:?Karin Soto DPM Date:?08/15/2023 Generated for Ilan escalona/Chencho/Pamelaitting on:?09/23/2024 12:58 PM EST History and Physical Notes * HPI (History of Present Illness) Category Sub-Category Detail Notes Category Not es Skin problems Nature: Open sore Onset/Cause: PNA Treatments: Topical abx, soaks Misc: denies any pain Examination Category Sub-Category Detail Notes Category Not es Dermatologic ULCER: LOCATION, Dorsal , TA lateral nail border, SIZE, 4 mm X 3 mm X 2-3mm, BASE, fibro-granular, RIM, hyperkeratotic, UNDERMINING, mild, TRACKING, Sub Q with Fat layer exposed, DRAINAGE, serosanguineous, moderate, NECROTIC TISSUE, loosely-adherent, yellow slough, MALODOR, absent, CALOR, trace, ERYTHEMA, trace
--- OUTSIDE RECORDS SUMMARY | 2024-09-23 12:59 | XMS_ITS | Patient Health Record ---
Author Organization [facility] Address [address] [place] [address] Care Team Providers Care Principal Web Developer Name Role Phone Yogi Samaniego MD Primary Care Provider Supa Jose [phone] ALLERGIES Allergen (clinical drug ingredient) Drug/Non Drug Allergy documented on EMR Reaction Allergy Type Onset Date Status morphine Morphine Sulfate vomiting Drug Allergy Active REASON FOR REFERRAL No Information MEDICATIONS Medication SIG (Take, Route, Frequency, Duration) Notes Start Date End Date Status dilTIAZem HCl Active Lisinopril-hydroCHLOROthia zide 10-12.5 MG Oral for 90 Active Aspirin 325 MG 1 tablet Orally Once a day for 30 day(s) Active Flecainide Acetate 150 MG TAKE 1 TABLET BY MOUTH TWICE A DAY Oral for 30 Active IMMUNIZATIONS Vaccine Route Administration Date Status Comme nts Influenza Unknown 03/28/2022 Administered SOCIAL HISTORY Sex Assigned At : Social History Observation Description Sex Assigned At Unknown Alcohol Screen Question Answer Notes Did you [...] Never (0 point) Points 2 Interpretation Negative PROBLEMS Problem Type ICD Code Onset Dates Problem Status W/U Status Risk SNOMED Code Notes Problem Encounter for screening for malignant neoplasm of colon (Z12.11) Active confirmed 909416095 Problem History of adenomatous polyp of colon (Z86.010) Active confirmed 425626652 Problem Abdominal bloating (R14.0) Active confirmed 255604738 Problem History of colon polyps (Z86.010) Active confirmed History of polyp of colon (861943729) Problem Family history of colon cancer in father (Z80.0) Active confirmed 808244795 PLAN OF TREATMENT Future Test Test Name Order Date COLONOSCOPY 07/03/2011 COLONOSCOPY 02/26/2017 COLONOSCOPY 09/05/2022 Insurance Providers Payer Name Payer Address Payer Phone Subscriber Number Group Number Insured Name Patient Relationship to Insured Coverage Start Date Coverage End Date [facility] [address] [place] [address] [id number] ABIEL KENNETH Self - patient is the insured MEDICAL (GENERAL) HISTORY Medical History History ICD Code Atrial fibrillation/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
== END 2024-09-23 07:31 | disposition home or self-care (01) ==
LOC: HO.LNP 07:30
PROVIDERS: Visit Provider Internal Medicine
DX: E11.9 Type 2 diabetes mellitus without complications (principal); E78.00 Pure hypercholesterolemia, unspecified
CPT/HCPCS: 80061; 80076; 82947; 83036

== ENCOUNTER 2024-12-17 11:50 | Outpatient (REF) | payer MEDICARE, OTHER, SELFPAY ==
--- OUTSIDE RECORDS SUMMARY | 2024-12-17 11:53 | XMS_ITS | Patient Health Record ---
Author Organization Yogi Samaniego MD Address [address] [place], [place] [id number] Care Team Providers Care Sugar Controller Name Role Phone Yogi Samaniego Primary Care Provider Allergies Allergen (clinical drug ingredient) Drug/Non Drug Allergy documented on EMR Reaction Allergy Type Onset Date Status morphine Morphine Sulfate N/V Drug Allergy Active Results Component Value Reference Range Notes Hemoglobin A1c Reviewed date:12/18/2023 08:47:21 AM Interpretation: Performing Lab: Notes/Report: Hemoglobin A1c 5.8 Glucose, finger stick Reviewed date:01/12/2024 12:57:55 PM Interpretation: Performing Lab: Notes/Report: Value 178 Complete Blood Count Auto Di ff Reviewed date:06/10/2024 03:16:21 PM Interpretation: Performing Lab:[facility], [address] [place] [phone] Notes/Report: White Blood Count 8.5 4.8-10.8 X10*3/uL [...] NRBC Abs Auto 0.000 0.0-0.012 X10*3/uL Comprehensive Finger. Panel Fa st Reviewed date:06/10/2024 12:44:25 PM Interpretation: Performing Lab:[facility], [address] [place] [phone] Notes/Report: Sodium 140 135-145 mmol/L Potassium 4.2 [...] Panel Reviewed date:06/10/2024 12:56:29 PM Interpretation: Performing Lab:[address] [phone] Notes/Report: Triglycerides 185 <150 mg/dL Desirable Triglyceride: [...] (Free>4and<10) Reviewed date:06/10/2024 12:44:04 PM Interpretation: Performing Lab:[address] [phone] Notes/Report: PSA,Total (Free>4and<10) 0.57 0.00-4.00 ng/mL A [...] Random Reviewed date:06/10/2024 03:17:20 PM Interpretation: Performing Lab:[address] [phone] Notes/Report: Creatinine Urine 158.80 Microalbumin Urine 25.0 Microalbum/Creatinine Ratio Ur 15.7 <30 ug/mg cr Albumin/Creatinine Ratio Reference Ranges: Normal: < 30 ug/mg creatinine Microalbuminuria: 30 - 300 ug/mg creatinine Clinical Albuminuria: > 300 ug/mg creatinine Hemoglobin A1c Reviewed date:06/10/2024 03:17:09 PM Interpretation: Performing Lab:[address] [phone] Notes/Report: Hemoglobin A1c % 5.7 <6.0 % [...] average glucose, using the formula of the S0C-Qggtwkj Average Glucose study (ADAG), Diabetes Care, Vol.31,#8, Feb. 2007 UA ClnCatch+Micro w/rflx Cul t Reviewed date:06/10/2024 06:07:53 PM Interpretation: Performing Lab:[address] [phone] Notes/Report: Urine, Clean Catch Color Urine Yellow Appearance Urine Cloudy PH 6.0 5.0-9.0 Glucose Urine UA Negative Negative mg/dL Urine Blood Negative Negative Specific [place] - Urine 1.020 1.005-1.025 Urine Protein Negative Neg-Trace mg/dL Urine Ketones Negative Negative mg/dL Nitrite Urine Negative Negative Leukocyte Esterase Urine Negative Negative RBC Urine 0-2 0-2 /HPF WBC Urine 0-5 0-5 /HPF Squamous Epithelial Cell Urine 0-2 0-2 /HPF Bacteria Urine None Seen None Seen Hyaline Casts Urine 0-2 0-2 /LPF Liver Panel Reviewed date:09/23/2024 04:14:06 PM Interpretation: Performing Lab:[facility], [address] [place] [phone] Notes/Report: Bilirubin Total 1.1 0.0-1.0 mg/dL Bilirubin Direct 0.4 0.0-0.5 mg/dL Aspartate Amino Transferase 27 5-37 U/L Alanine Aminotransferase 30 0-40 U/L Total Protein 7.7 6.5-8.0 g/dL Albumin Level 4.0 3.5-5.0 g/dL Alkaline Phosphatase 72 39-117 U/L Glucose Fasting Reviewed date:09/23/2024 04:11:54 PM Interpretation: Performing Lab:[facility], [address] [place] [phone] Notes/Report: Glucose Fasting 104 60-99 mg/dL A fasting glucose from 100-125 mg/dl is considered impaired (pre-diabetes). Lipid Panel Reviewed date:09/23/2024 04:11:44 PM Interpretation: Performing Lab:[facility], [address] [place] [phone] Notes/Report: Triglycerides 143 <150 mg/dL Desirable Triglyceride: [...] in patients with liver disease. Hemoglobin A1c Reviewed date:09/23/2024 04:06:53 PM Interpretation: Performing Lab:[facility], [address] [place] [phone] Notes/Report: Hemoglobin A1c % 5.8 <6.0 % [...] average glucose, using the formula of the P8H-Okhmejc Average Glucose study (ADAG), Diabetes Care, Vol.31,#8, Feb. 2007 Analia Trammell Reviewed date:09/23/2024 12:43:48 PM Interpretation: Performing Lab:[facility], [address] [place] [phone] Notes/Report: Analia Trammell See Note Specimen held untested for 24 hours; Call to request Chemistry testing. Reason For Referral No Information Medications Medication SIG (Take, Route, Frequency, Duration) Notes Start Date End Date Status Aspirin 325 MG 1 tablet Orally Once a day for 30 day(s) Active Atorvastatin Calcium 40 MG 1 tablet Orally Once a day for 30 days 06/22/2024 Active Lisinopril-hydroCHLOROthi azide 10-12.5 MG TAKE 1 TABLET BY MOUTH EVERY DAY for 90 Active Metoprolol Tartrate 50 MG TAKE 1 TABLET [...] times a day for 30 days Active Flecainide Acetate 150 MG TAKE 1/2 TABLE T BY MOUTH TWICE A DAY ( EVERY 12 HOURS) for 90 Active Immunizations Vaccine Route Administration Date Status Comme nts Fluarix Quadrivalent Unknown 04/09/2020 Administered CV S PPSV23 (Pnemovax) IM Intramuscular 05/29/2020 Administered SARS-COV-2 Pfizer Unknown 09/14/2020 Administered SARS-COV-2 Pfizer Unknown 10/06/2020 Administered Fluarix Quadrivalent Unknown 05/18/2021 Administered SARS-COV-2 Pfizer Unknown 05/31/2021 Administered Shingrix IM Intramuscular 12/14/2021 Administered Fluarix Quadrivalent IM Intramuscular 06/13/2022 Administe red Fluarix Quadrivalent IM Intramuscular 04/03/2023 Administe red Fluarix Quadrivalent IM Intramuscular 06/10/2023 Administe red Influenza High Dose Unknown 04/13/2024 Administered [facility] Flu Vaccine Unknown 08/04/2014 Refused Fluarix Quadrivalent Unknown 12/01/2017 Refused PPSV23 (Pnemovax) Unknown 01/18/2019 Refused Fluarix Quadrivalent Unknown 07/29/2019 Refused Shingrix Unknown 07/29/2019 Refused Social History Tobacco Use: Social History Observation [...] Never (0 point) Points 2 Interpretation Negative Problems Problem Type SNOMED Code ICD Code Onset Dates Problem Status W/U Status Risk Notes Problem Prostatism (61117455) Prostatism (N40.0) Active confirmed Problem Tubular adenoma (845161162) Tubular adenoma (D36.9) Active confirmed Problem 252897555 Paroxysmal atria l fibrillation (I48.0) Active confirmed Problem 40262634 Obstructive slee p apnea syndrome (G47.33) Active confirmed Problem Benign essential hypertension (7767803) Benign essential hypertension (I10) Active confirmed Problem 721049791 Pure hypercholesterolemia (E78.00) Active confirmed Problem 82179087 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) Active confirmed Problem 446775825 BMI 40.0-44.9, a dult (Z68.41) Active confirmed Problem 049331884 Balanitis xeroti ca obliterans (N48.0) Active confirmed Problem 249275858 Herpes simplex t ype 2 infection (B00.9) Active confirmed Problem 322876999 Type 2 diabetes mellitus without complication, with no history of insulin use (E11.9) Active confirmed Vital Signs Blood pressure diastolic 80 mm Hg 06/22/2024 Height 70 in 06/22/2024 Blood pressure systolic 140 mm Hg 06/22/2024 Weight 300 lbs 06/22/2024 BMI 43.04 kg/m2 06/22/2024 Encounters Encounter Location Date Provider Diagnosis Yogi Samaniego MD [address] [facility] [address] [place] [id number] 12/18/2023 Yogi Samaniego Type 2 diabetes tesfaye itus without complication, with no history of insulin use E11.9 Yogi Samaniego MD [address] [place] [address] Drive [address] [place] [id number] 06/10/2024 Yogi Samaniego Pure hypercholestero lemia E78.00 ; Prostatism N40.0 ; Benign essential hypertension I10 and Type 2 diabetes mellitus without complication, with no history of insulin use E11.9 Yogi Samaniego MD [address] [facility] [address] [id number] 09/23/2024 Yogi Samaniego Pure hypercholestero lemia E78.00 and Type 2 diabetes mellitus without complication, with no history of insulin use E11.9 Yogi Samaniego MD [address] [facility] [address] [id number] 12/17/2024 Yogi Samaniego Pure hypercholestero lemia E78.00 and Type 2 diabetes mellitus without complication, with no history of insulin use E11.9 Yogi Samaniego MD [address] [place] [address] [id number] 06/22/2024 Yogi Samaniego Type 2 diabetes tesfaye itus without complication, with no history of insulin use E11.9 ; BMI 40.0-44.9, adult Z68.41 ; Benign essential hypertension I10 and Pure hypercholesterolemia E78.00 Yogi Samaniego MD [address] [place] [id number] 02/23/2024 Yogi Samaniego MD [address] [facility] [address] [id number] 10/21/2024 Yogi Samaniego Myalgia, multiple si ruiz M79.18 Assessments Encounter Date Diagnosis (ICD Code) Assessment Notes Treatment Notes Treatment Clinical Notes Section Notes 12/18/2023 Type 2 diabetes tesfaye itus without complication, with no history of insulin use (ICD-10 - E11.9) blood sugar was a half hour pp. 06/10/2024 Pure hypercholesterolemia (ICD-10 - E78.00) 06/10/2024 Prostatism (ICD-10 - N40.0) 09/23/2024 Pure hypercholesterolemia (ICD-10 - E78.00) 12/17/2024 Pure hypercholesterolemia (ICD-10 - E78.00) 06/22/2024 Type 2 diabetes tesfaye itus without complication, with no history of insulin use (ICD-10 - E11.9) stable, will continue current regiment 06/22/2024 BMI 40.0-44.9, adult (ICD-10 - Z68.41) advised on diet and exerice benefits 10/21/2024 Myalgia, multiple si ruiz (ICD-10 - M79.18) 06/10/2024 Benign essential hypertension (ICD-10 - I10) 09/23/2024 Type 2 diabetes tesfaye itus without complication, with no history of insulin use (ICD-10 - E11.9) 12/17/2024 Type 2 diabetes tesfaye itus without complication, with no history of insulin use (ICD-10 - E11.9) 06/22/2024 Benign essential hypertension (ICD-10 - I10) stable, will continue curent regiment 06/10/2024 Type 2 diabetes tesfaye itus without complication, with no history of insulin use (ICD-10 - E11.9) 06/22/2024 Pure hypercholesterolemia (ICD-10 - E78.00) stable, will continue to monitor Plan Of Treatment Pending Test Test Name Order Date XR CERVICAL SPINE 4+ VIEWS 01/09/2021 US LEG LT VENOUS DOPPLER 02/11/2017 Liver Panel 12/17/2024 Glucose Fasting 12/17/2024 Lipid Panel with Reflex 12/17/2024 XR thoracic spine 3V 01/09/2021 Hemoglobin A1c 12/17/2024 Next Appt Details Provider Name:Yogi erazo, 12/21/2024 10:00:00 AM, [address] [place] [address], Suite [facility], [place], [place], [id number], Provider Name:Yogi erazo, 06/28/2025 07:15:00 AM, [address], [address], [place], [place], [id number], Provider Name:Yogi Cottrell ier, 07/05/2025 09:30:00 AM, [address], [address], [place], [place], [id number], Insurance Providers Payer Name Payer Address Payer Phone Subscriber Number Group Number Insured Name Patient Relationship to Insured Coverage Start Date Coverage End Date MEDICARE NHIC [address]OV[address] [place] [address] [id number] [facility] Self - patient is the insured [facility] [address] [place] [phone] [id number] [facility] Self - patient is the insured Medical (General) History Medical History History ICD Code 07/2011. due in 5 years colon oscopy; colonoscopy done 06/[address] Moffett repeat in 5 years(2021)Colonoscopy 11/01/22 repeat 5y CHADS VASC 1 so not on anticoagulant 02/2017 had ablation blood sugar over 200 on 12/16 Prediabetes R73.03 Surgical History Surgery Date(Month/Year) Circumcision/Scrotoplasty - Dr. Reece
[2024-12-17 12:12] LABS: Estimated Average Glucose 123 mg/dL; Hemoglobin A1c % 5.9 % (<6.0)
[2024-12-17 12:35] LABS: Alanine Aminotransferase 30 U/L (0-40); Alkaline Phosphatase 68 U/L (39-117); Aspartate Amino Transferase 32 U/L (5-37); Bilirubin Direct 0.3 mg/dL (0.0-0.5); Bilirubin Total 0.9 mg/dL (0.0-1.0); Cholesterol 134 mg/dL (<200); Glucose Fasting 106 mg/dL (60-99); HDL Cholesterol 33 mg/dL (>40); LDL Cholesterol Calculated 76 mg/dL (<100); Total Protein 7.2 g/dL (6.5-8.0); Triglycerides 125 mg/dL (<150)
[2024-12-17 12:59] LABS: Reflex LDLD? No
== END 2024-12-17 11:51 | disposition home or self-care (01) ==
LOC: HO.LNP 11:50
PROVIDERS: Visit Provider Internal Medicine
DX: E78.00 Pure hypercholesterolemia, unspecified (principal)
CPT/HCPCS: 80061; 80076; 82947; 83036

== ENCOUNTER 2025-01-27 09:23 | Outpatient (REF) | payer MEDICARE, OTHER, SELFPAY ==
[2025-01-27 14:50] LABS: MANUAL DIFF FLAG NO
[2025-01-27 14:57] LABS: Hematocrit 45.0 % (42.0-52.0); Hemoglobin 15.0 g/dl (14.0-18.0); Imm Gran Abs Auto 0.03 X10*3/uL (0.00-0.03); Imm Gran Pct Auto 0.4 % (0.0-0.4); Lymphocytes Absolute Auto 1.8 X10*3/uL (1.2-4.9); Mean Corpuscular HGB Conc 33.3 g/dl (31.0-36.0); Mean Corpuscular Hemoglobin 30.7 pg (27.0-33.0); Mean Corpuscular Volume 92.0 fL (80.0-98.0); NRBC Abs Auto 0.000 X10*3/uL (0.0-0.012); NRBC Pct Auto 0.0 /100WBC (0.0-0.2); Platelet Count 247 X10*3/uL (160-400); Red Blood Count 4.89 X10*6/uL (4.60-5.80); White Blood Count 8.0 X10*3/uL (4.8-10.8)
[2025-01-27 15:36] LABS: Anion Gap 12 (12-20); Blood Urea Nitrogen 21 mg/dL (9-16); Calcium 9.2 mg/dL (8.4-10.2); Carbon Dioxide 26 mmol/L (22-29); Chloride 107 mmol/L (96-108); Estimated Glomerular Filt Rate > 60; Potassium 4.2 mmol/L (3.3-5.1); Sodium 141 mmol/L (135-145)
[2025-01-27 15:37] LABS: Alanine Aminotransferase 35 U/L (0-40); Albumin Level 4.2 g/dL (3.5-5.0); Alkaline Phosphatase 64 U/L (39-117); Aspartate Amino Transferase 34 U/L (5-37); Total Protein 7.2 g/dL (6.5-8.0)
[2025-01-27 15:53] LABS: Folate 11.3 ng/mL (> or = 4.0); Vitamin B12 197 pg/mL (200-900)
== END 2025-01-27 09:24 | disposition home or self-care (01) ==
LOC: HO.HKASLDS 09:23
PROVIDERS: PCP Internal Medicine; Visit Provider Psychiatry & Neurology Neurology
DX: R41.89 Other symptoms and signs involving cognitive functions and awareness (principal)
CPT/HCPCS: 36415; 80053; 82607; 82746; 84443; 85025; 85652; 99202

== ENCOUNTER 2025-01-27 09:23 | Outpatient (AMB) | payer MEDICARE, OTHER, SELFPAY ==
[2025-01-27 09:31] VITALS: BP 154/92; PULSE 81; O2SAT 96; BMI 43.6
--- NOTE | 2025-01-27 09:31 | A.OFFVIS_ITS ---
Vital Signs 01/27/25 09:31 Height 5 ft 9 in Weight 295 lb BMI 43.6 BP 154/92 H Blood Pressure Location Rt brachial Position Sitting Pulse 81 Pulse Source Pulse Oximeter Pulse Oximetry (%) 96 Oxygen Delivery Method Room Air Intake Visit Reasons: INP - Mild Cognitive Impairment Intake Note: Patient referred by Dr. Samaniego for mild cognitive impairment Allergies morphine (MORPHINE) Allergy (Unknown, Unverified 01/27/25 09:32) NAUSEA & VOMITING HPI Comments Details: 64y/o Right handed male comes for cognitive evaluation. He reports some short term memory issues, difficulty recalling for past few mths and his is concerned. He has difficulty with names - calls his siblings the wrong names, forgets dates, he misses appointments , missing medications etc. He drives good . sleep is good with CPAP. No known head injury No fh/o dementia His daughter is getting and moving to [facility] , his son has psych issues and had commit him to crisis so he is under a lot of stress. 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 He also boght a new house and moved recently. [facility] Medical History HTN (hypertension) Sleep apnea treated with continuous positive airway pressure (CPAP) Atrial fibrillation and flutter Surgical History H/O knee surgery H/O foot surgery H/O colonoscopy Social History Patient Tobacco Use Status: Never used Tobacco Review of Systems ENT Reports Normal hearing present Neuro Reports Normal hearing present Physical Exam Vital Signs: Last Vital Signs Pulse 81 01/27/25 09:31 BP 154/92 H 01/27/25 09:31 Pulse Ox 96 01/27/25 09:31 Oxygen Delivery Method Room Air 01/27/25 09:31 BMI result Body Mass Index 43.6 Const General: cooperative, healthy appearing, comfortable and no acute distress Nutritional Appearance: obese Orientation/consciousness: patient oriented x3 Eyes Pupils: Equal, round and reactive pupils present Neck Neck: Yes no meningeal signs Neuro Other: Obese Mallampatti grade4 General: patient oriented x3, gait normal, tone normal, moves all extremities, no meningeal signs and no focal motor deficits Cranial nerves: Yes Facial sensation intact/muscles of mastication intact, Yes Equal, round and reactive pupils present, Yes Bilaterally intact EOM present, Yes Nystagmus not present, Yes Normal facial strength present, Yes Midline tongue present, Yes Symmetric palate elevation present, Yes Normal hearing present and Yes Ability to bilaterally elevate shoulders present Cognition (Neuro): normal cognition Gait exam (Neuro): Normal gait present Motor exam (neuro): 5/5 motor strength present throughout and Normal motor muscle tone present throughout Deep tendon reflexes (DTR's): Right triceps reflex intensity grade: 1+, Left triceps reflex intensity grade: 1+, Rt Biceps (C5, C6): 1+, Left biceps reflex intensity grade: 1+, Right brachioradialis reflex intensity grade: 1+, Left brachioradialis reflex intensity grade: 1+, Right patellar reflex intensity grade: 1+ and Left patellar reflex intensity grade: 1+ Coordination: [id number] test normal Orientation What is the (year) (season) (date) (day) (month)?: year, season, date, day and month Where are we (state) (county) (town or city) (hospital) (floor)?: state, county, town or city, hospital/clinic and floor Registration Name of 3 unrelated objects clearly and slowly, then ask patient to repeat all 3 of them. (1st repeat determines score. Make sure they can repeat all three): object 1, object 2 and object 3 Attention & Calculation (CHOOSE ONE) Spell WORLD backwards (DLROW): 5 letters Recall Ask patient to repeat the 3 items from question #3.: object 1, object 2 and object 3 Language Show patient a wristwatch & ask what it is. Repeat for pencil.: watch and pencil Ask the patient to repeat the phrase 'No ifs, ands, or buts' after you.: correct Ask the patient to 'take a piece of paper with their right hand' 'fold paper in half' 'place paper on floor': take paper in right hand, fold paper in half and place paper on floor Print the sentence 'CLOSE YOUR EYES' on a piece. If patient actually closes eyes then score.: followed written direction Give patient a blank piece of paper & ask to write a sentence. Score if it contains a noun & verb.: sentence contains subject and verb Ask patient to copy figure of intersecting pentagons exactly. Score if all 10 angles & 2 intersects are included.: all 10 angles present & 2 are intersected Score Score: 30 Assessment & Plan Assessment & Plan (1) Cognitive impairment: Code(s): R41.89 - Other symptoms and signs involving cognitive functions and awareness Category: Medical Plan He did well on MMSE He is under a lot of stress and his cognitive issues might be related to that I will evaluate him with MRI Brain Labs - Vit B 12 TSH ESR CBC CMP will consider neurpsych Declined antidepressants Orders: Orders MR head/brain wo con Today R41.89 - Other symptoms and signs involving cognitive functions and awareness Vitamin B12 and Folate Today R41.89 - Other symptoms and signs involving cognitive functions and awareness Complete Blood Count Auto Diff Today R41.89 - Other symptoms and signs involving cognitive functions and awareness Comprehensive Met. Panel Today R41.89 - Other symptoms and signs involving cognitive functions and awareness Erythrocyte Sedimentation Rate Today R41.89 - Other symptoms and signs involving cognitive functions and awareness TSH reflex Free T4 Today R41.89 - Other symptoms and signs involving cognitive functions and awareness Coding Level of Care Code New Pt Level 4 (42447) Diagnoses Cognitive impairment R41.89
--- OUTSIDE RECORDS SUMMARY | 2025-01-27 09:42 | XMS_ITS | Patient Health Record ---
Author Organization [facility] Address [address] [place] [address] Care Team Providers Care Surface Lay Out Technician Name Role Phone Yogi Samaniego MD Primary Care Provider Supa Jose [phone] Allergies Allergen (clinical drug ingredient) Drug/Non Drug Allergy documented on EMR Reaction Allergy Type Onset Date Status morphine Morphine Sulfate vomiting Drug Allergy Active Reason For Referral No Information Medications Medication SIG (Take, Route, Frequency, Duration) Notes Start Date End Date Status dilTIAZem HCl Active Lisinopril-hydroCHLOROthia zide 10-12.5 MG Oral for 90 Active Aspirin 325 MG 1 tablet Orally Once a day for 30 day(s) Active Flecainide Acetate 150 MG TAKE 1 TABLET BY MOUTH TWICE A DAY Oral for 30 Active Immunizations Vaccine Route Administration Date Status Comme nts Influenza Unknown 03/28/2022 Administered Social History Alcohol Screen Question Answer Notes Did you [...] Never (0 point) Points 2 Interpretation Negative Section Notes: He does not smoke, and uses only occasional alcohol He does not smoke, and uses only occasional alcohol He does not smoke, and uses only occasional alcohol Problems Problem Type SNOMED Code ICD Code Onset Dates Problem Status W/U Status Risk Notes Problem 014008523 Encounter for screening for malignant neoplasm of colon (Z12.11) Active confirmed Problem 556929676 History of adenomatous polyp of colon (Z86.010) Active confirmed Problem 091434998 Abdominal bloating (R14.0) Active confirmed Problem History of colon polyps (Z86.010) Active confirmed Problem 949302822 Family history of colon cancer in father (Z80.0) Active confirmed Plan Of Treatment Future Test Test Name Order Date COLONOSCOPY 07/03/2011 COLONOSCOPY 02/26/2017 COLONOSCOPY 09/05/2022 Insurance Providers Payer Name Payer Address Payer Phone Subscriber Number Group Number Insured Name Patient Relationship to Insured Coverage Start Date Coverage End Date [facility] [address] [place] [id number] 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
--- OUTSIDE RECORDS SUMMARY | 2025-01-27 09:42 | XMS_ITS | Patient Health Record ---
Author Organization [facility] Address [address] [facility] [place] [address] Care Team Providers Care Welder Apprentice Name Role Phone Yogi Samaniego MD Primary Care Provider Fercho Nielsen Unavailable [phone] Karin Soto Unavailable [phone] Allergies Allergen (clinical drug ingredient) Drug/Non Drug Allergy documented on EMR Reaction Allergy Type Onset Date Status morphine Morphine nausea Drug Allergy Active Reason For Referral No Information Medications Medication SIG (Take, Route, Frequency, Duration) Notes Start Date End Date Status Metoprolol Tartrate 50 MG 1 tablet with food Orally Twice a day; Duration: 30 day(s) 05/02/2021 Active Aspir-81 Not-Taking Birgit Aspirin 325 MG 1 tablet Orally Onc e a day; Duration: 30 day(s) Not-Taking dilTIAZem HCl ER Beads 240 MG 1 capsule Orally Once a day; Duration: 30 day(s) Active methylPREDNISolone 4 MG TAKE 6 TABLETS O N DAY 1 DIRECTED ON PACKAGE AND DECREASE BY 1 TAB EACH DAY FOR A TOTAL OF 6 DAYS Oral; Duration: 6 Not-Taking Flecainide Acetate 150 MG as directed Orally 05/02 Active Triamcinolone Acetonide 0.025 % APPLY 1 APPLICATION (TOPICAL) 2 TIMES PER DAY FOR 14 DAYS External; Duration: 14 Not-Taking Ibuprofen 800 MG TAKE 1 TABLET BY MOUTH 3 TIMES A DAY Oral; Duration: 30 PRN Active Lisinopril 2.5 MG 1 tablet Orally Once a day; Duration: 30 day(s) Active Cephalexin 500 MG 1 tablet Orally Twice a day; Duration: 10 day(s) Not-Taking dilTIAZem HCl ER Coated Beads 240 MG TAKE ONE CAPSULE BY MOUTH EVERY DAY Oral; Duration: 90 Not-Taking Doxycycline Hyclate 100 MG TAKE 1 TABLET (ORAL) 2 TIMES PER DAY FOR 7 DAYS Oral; Duration: 7 Not-Taking Birgit Aspirin 325 MG 1 tablet Orally Onc e a day; Duration: 30 day(s) 05/02/2021 Active Flecainide Acetate N [...] Ordered Date Performed Result Body Sit e [id number] 05/27/2024 N/A 02075-EWZHZES SKIN/TISSUE 06/15/2024 N/A Encounters Encounter Location Date Provider Diagnosis [facility] [address] [phone] 05/27/2024 Karin Soto Ingrown nail L60.[address] [facility] [address] [address] 06/15/2024 Karin Blissaker Skin ulcer of toe [...] Treatment Pending Test Test Name Order Date [id number] Plate 05/17/2021 [id number] 05/27/2024 [id number] SKIN/TISSUE 06/15/2024 [id number] I&D ABSCESS- SIMPLE,SINGLE 016 Insurance Providers Payer Name Payer Address Payer Phone Subscriber Number Group Number Insured Name Patient Relationship to Insured Coverage Start Date Coverage End Date Medicare National [employer] [address] [place] [address] [id number] [facility] Self - patient is the insured 3 [employer] [address] [place] [address] [id number] [facility] Self - patient is the insured Medical (General) History Medical History History ICD Code covid 19 arthritis Back, Hip, Knee pain high blood pressure Afib Surgical History Surgery Date(Month/Year) achilles tendon repair knee surgery Bilateral cardioversion ablation for afib x2
--- OUTSIDE RECORDS SUMMARY | 2025-01-27 09:42 | XMS_ITS | Clinical Summary ---
Author Organization [facility] ity Address [address] [place] [address] Care Team Providers Care Fisher Weir Name Role Phone Unavailable Primary Care Provider [...] - 2023-2 5 season) 2024 Influenza Vaccine (Season Ended) 2025 RSV Immunization Adult Patie nts (1 - 1-dose 75+ series) 2033 HIB [...] age to complete this topic Meningococcal B Vaccine Aged Out No l onger eligible based on patient's age to complete this topic RSV Immunization Patients Un jael 20 months Aged Out No longer eligible b ased on patient's age to complete this topic Varicella Vaccines Aged Out No longer eligible based on patient's age to complete this topic
--- OUTSIDE RECORDS SUMMARY | 2025-01-27 09:42 | XMS_ITS | Patient Health Record ---
Author Organization Yogi Samaniego MD Address [address] [facility], [place] [id number] Care Team Providers Care Sorting Machine Attendant Name Role Phone Yogi Samaniego Primary Care Provider Allergies Allergen (clinical drug ingredient) Drug/Non Drug Allergy documented on EMR Reaction Allergy Type Onset Date Status Morphine Sulfate N/V Drug Allergy Active Results Component Value Reference Range Notes Complete Blood Count Auto Di ff Reviewed date:06/10/2024 03:16:21 PM Interpretation: Performing Lab:[facility], [address] [place] [phone] Notes/Report: White Blood Count 8.5 4.8-10.8 X10*3/uL [...] NRBC Abs Auto 0.000 0.0-0.012 X10*3/uL Comprehensive [place]. Panel Fa st Reviewed date:06/10/2024 12:44:25 PM Interpretation: Performing Lab:[facility], [address] [place] [phone] Notes/Report: Sodium 140 135-145 mmol/L Potassium 4.2 [...] Panel Reviewed date:06/10/2024 12:56:29 PM Interpretation: Performing Lab:[address] [phone] Notes/Report: Triglycerides 185 <150 mg/dL Desirable Triglyceride: [...] (Free>4and<10) Reviewed date:06/10/2024 12:44:04 PM Interpretation: Performing Lab:[address] [phone] Notes/Report: PSA,Total (Free>4and<10) 0.57 0.00-4.00 ng/mL A [...] Random Reviewed date:06/10/2024 03:17:20 PM Interpretation: Performing Lab:[address] [phone] Notes/Report: Creatinine Urine 158.80 Microalbumin Urine 25.0 Microalbum/Creatinine Ratio Ur 15.7 <30 ug/mg cr Albumin/Creatinine Ratio Reference Ranges: Normal: < 30 ug/mg creatinine Microalbuminuria: 30 - 300 ug/mg creatinine Clinical Albuminuria: > 300 ug/mg creatinine Hemoglobin A1c Reviewed date:06/10/2024 03:17:09 PM Interpretation: Performing Lab:[address] [phone] Notes/Report: Hemoglobin A1c % 5.7 <6.0 % [...] average glucose, using the formula of the U4A-Fkwnqgn Average Glucose study (ADAG), Diabetes Care, Vol.31,#8, Feb. 2007 UA ClnCatch+Micro w/rflx Cul t Reviewed date:06/10/2024 06:07:53 PM Interpretation: Performing Lab:[address] [phone] Notes/Report: Urine, Clean Catch Color Urine Yellow Appearance Urine Cloudy PH 6.0 5.0-9.0 Glucose Urine UA Negative Negative mg/dL Urine Blood Negative Negative Specific [place] - Urine 1.020 1.005-1.025 Urine Protein Negative Neg-Trace mg/dL Urine Ketones Negative Negative mg/dL Nitrite Urine Negative Negative Leukocyte Esterase Urine Negative Negative RBC Urine 0-2 0-2 /HPF WBC Urine 0-5 0-5 /HPF Squamous Epithelial Cell Urine 0-2 0-2 /HPF Bacteria Urine None Seen None Seen Hyaline Casts Urine 0-2 0-2 /LPF Liver Panel Reviewed date:09/23/2024 04:14:06 PM Interpretation: Performing Lab:[address] [place] [address] Notes/Report: Bilirubin Total 1.1 0.0-1.0 mg/dL Bilirubin Direct 0.4 0.0-0.5 mg/dL Aspartate Amino Transferase 27 5-37 U/L Alanine Aminotransferase 30 0-40 U/L Total Protein 7.7 6.5-8.0 g/dL Albumin Level 4.0 3.5-5.0 g/dL Alkaline Phosphatase 72 39-117 U/L Glucose Fasting Reviewed date:09/23/2024 04:11:54 PM Interpretation: Performing Lab:[facility], [address] [place] [phone] Notes/Report: Glucose Fasting 104 60-99 mg/dL A fasting glucose from 100-125 mg/dl is considered impaired (pre-diabetes). Lipid Panel Reviewed date:09/23/2024 04:11:44 PM Interpretation: Performing Lab:[facility], [address] [place] [phone] Notes/Report: Triglycerides 143 <150 mg/dL Desirable Triglyceride: [...] A1c Reviewed date:09/23/2024 04:06:53 PM Interpretation: Performing Lab:[facility], [address] [place] [phone] Notes/Report: Hemoglobin A1c % 5.8 <6.0 % [...] average glucose, using the formula of the C1K-Jgvvwru Average Glucose study (ADAG), Diabetes Care, Vol.31,#8, Feb. 2007 Liver Panel Reviewed date:12/17/2024 01:05:54 PM Interpretation: Performing Lab:[facility], [address] [place] [phone] Notes/Report: Bilirubin Total 0.9 0.0-1.0 mg/dL Bilirubin Direct 0.3 0.0-0.5 mg/dL Aspartate Amino Transferase 32 5-37 U/L Alanine Aminotransferase 30 0-40 U/L Total Protein 7.2 6.5-8.0 g/dL Albumin Level 4.0 3.5-5.0 g/dL Alkaline Phosphatase 68 39-117 U/L Glucose Fasting Reviewed date:12/17/2024 01:06:04 PM Interpretation: Performing Lab:[facility], [address] [place] [phone] Notes/Report: Glucose Fasting 106 60-99 mg/dL A fasting glucose from 100-125 mg/dl is considered impaired (pre-diabetes). Lipid Panel with Reflex Reviewed date:12/17/2024 01:06:31 PM Interpretation: Performing Lab:[facility], [address] [place] [phone] Notes/Report: Triglycerides 125 <150 mg/dL Desirable Triglyceride: less than 150 mg/dL Borderline High Triglyceride 150-199 mg/dL High Triglyceride: 200-499 mg/dL Very High Triglyceride: greater than or equal to 5OO mg/dL Cholesterol 134 <200 mg/dL Desirable Cholesterol: less than 200 mg/dL Borderline High Cholesterol: 200-239 mg/dL High Cholesterol: greater than 239 mg/dL LDL Cholesterol Calculated 76 <100 mg/dL Desirable LDL: less than 100 mg/dL Near Optimal/Above Optimal LDL: 110-129 mg/dL Borderline High LDL: 130-159 mg/dL High LDL: 160-189 mg/dL Very High LDL: greater than or equal to 190 mg/dL HDL Cholesterol 33 >40 mg/dL Desirable HDL: greater than 40 mg/dL Note: This HDL assay may give artificially low results in patients with liver disease. Hemoglobin A1c Reviewed date:12/17/2024 12:19:09 PM Interpretation: Performing Lab:[address] [phone] Notes/Report: Hemoglobin A1c % 5.9 <6.0 % Hemoglobin A1C Reference Range Adults: 4.8 - 6.0 % Non diabetic: < 6.0 % Goal: < 7.0 % Additional Action Suggested: > 8.0 % Note: Hemoglobin A1c results are invalid for patients with abnormal amounts of HbF. Blood transfusions may impact the HbA1c concentration in the patient sample. Estimated Average Glucose 123 eAG = Estimated average glucose which is %A1C expressed as average glucose, using the formula of the T9D-Igptnlc Average Glucose study (ADAG), Diabetes Care, Vol.31,#8, 2007 Analia Trammell Reviewed date:09/23/2024 12:43:48 PM Interpretation: Performing Lab:[address] [phone] Notes/Report: Analia Trammell See Note Specimen held untested for 24 hours; Call to request Chemistry testing. Analia Trammell Reviewed date:12/17/2024 12:20:13 PM Interpretation: Performing Lab:[facility], [address] [place] [phone] Notes/Report: Analia Trammell See Note Specimen held untested for 24 hours; Call to request Chemistry testing. Reason For Referral Reason MCI Diagnosis 1 MCI (mild cognitive impairment) (G31.84) Referral Organization Yogi Samaniego MD Referring Provider First Name Yogi Referring Provider Last Name Danette Referring Provider Speciality Internal M edicine Referred Provider Radha Burger Referred Provider Specialty Neurology General Notes Keely Loyd 0 12/21/2024 10:20:43 AM >info faxedEvert Annette 12/31/2024 12:50:47 PM >was told patient is aware of appt Referral Priority Routine Referral Appointment Date 01/27/2025 Medications Medication SIG (Take, Route, Frequency, Duration) Notes Start Date End Date Status Metoprolol Tartrate 50 MG TAKE 1 TABLET BY MOUTH TWICE A DAY WITH FOOD Active Atorvastatin Calcium 40 MG TAKE 1 TABLET BY MOUTH EVERY DAY FOR 30 DAYS for 30 Active dilTIAZem HCl ER Coated Beads 240 MG TAKE ONE CAPSULE BY MOUTH EVERY DAY ORALLY ONCE A DAY 90 DAYS Active Aspirin 325 MG 1 tablet Orally Once a day for 30 day(s) Active Valtrex 500 MG 1 tablet Orally twic e a day for 3 days 10/16/2023 Not-Taking Flecainide Acetate 150 MG TAKE 1/2 TABLE T BY MOUTH TWICE A DAY ( EVERY 12 HOURS) for 90 Active Lisinopril-hydroCHLOROthi azide 10-12.5 MG TAKE 1 TABLET BY MOUTH EVERY DAY Active Ibuprofen 800 MG 1 tablet Orally Thre e times a day for 30 days Active Immunizations Vaccine Route Administration Date Status [...] Problem Status W/U Status Risk Notes Problem Diabetic neuropathy (926935005) Diabetic neuropathy (E11.40) Active confirmed Problem Prostatism (39737706) Prostatism (N40.0) Active confirmed Problem Tubular adenoma (813656115) Tubular adenoma (D36.9) Active confirmed Problem 731143549 Paroxysmal atria l fibrillation (I48.0) Active confirmed Problem 80650360 Obstructive slee p apnea syndrome (G47.33) Active confirmed Problem Benign essential hypertension (9200116) Benign essential hypertension (I10) Active confirmed Problem 815221423 Pure hypercholesterolemia (E78.00) Active confirmed Problem 50655206 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) Active confirmed Problem 858427003 BMI 40.0-44.9, a dult (Z68.41) Active confirmed Problem 978919829 Balanitis xeroti ca obliterans (N48.0) Active confirmed Problem 138353878 Herpes simplex t ype 2 infection (B00.9) Active confirmed Problem Mild cognitive disorder (592191733) MCI (mild cognitive impairment) (G31.84) Active confirmed Problem 516250963 Type 2 diabetes mellitus without complication, with no history of insulin use (E11.9) Active confirmed Vital Signs Blood pressure diastolic 70 mm Hg 12/21/2024 steven ght is up 3 pounds since 06-22-24 Height 70 in 12/21/2024 weight is up 3 pounds since 06-22-24 Blood pressure systolic 144 mm Hg 12/21/2024 weig ht is up 3 pounds since 06-22-24 Weight 303 lbs 12/21/2024 weight is up 3 pounds since 06-22-24 BMI 43.47 kg/m2 12/21/2024 weight is up 3 pounds since 06-22-24 Encounters Encounter Location Date Provider Diagnosis Yogi Samaniego MD [address] [facility], [place] [phone] 06/10/2024 Yogi Samaniego Pure hypercholestero lemia E78.00 ; Prostatism N40.0 ; Benign essential hypertension I10 and Type 2 diabetes mellitus without complication, with no history of insulin use E11.9 Yogi Samaniego MD [address] [place] [id number] 09/23/2024 Yogi Samaniego Pure hypercholestero lemia E78.00 and Type 2 diabetes mellitus without complication, with no history of insulin use E11.9 Yogi Samaniego MD [address] [place] [id number] 12/17/2024 Yogi Samaniego Pure hypercholestero lemia E78.00 and Type 2 diabetes mellitus without complication, with no history of insulin use E11.9 Yogi Samaniego MD [address] [place] [id number] 06/22/2024 Yogi Samaniego Type 2 diabetes tesfaye itus without complication, with no history of insulin use E11.9 ; BMI 40.0-44.9, adult Z68.41 ; Benign essential hypertension I10 and Pure hypercholesterolemia E78.00 Yogi Samaniego MD [address] [id number] 12/21/2024 Yogi Samaniego Type 2 diabetes tesfaye itus without complication, with no history of insulin use E11.9 ; Benign essential hypertension I10 ; MCI (mild cognitive impairment) G31.84 ; Diabetic neuropathy E11.40 and Pure hypercholesterolemia E78.00 Yogi Samaniego MD [address] [place] [id number] 02/23/2024 Yogi Samaniego MD [address] [place] [address] [id number] 10/21/2024 Yogi Samaniego Myalgia, multiple si ruiz [...] Z68.41) advised on diet and exerice benefits 12/21/2024 Type 2 diabetes tesfaye itus without complication, with no history of insulin use (ICD-10 - E11.9) needs to diet, will continue to monitor 12/21/2024 Benign essential hypertension (ICD-10 - I10) is well, will continue current regiment 10/21/2024 Myalgia, multiple si ruiz (ICD-10 - M79.18) 06/10/2024 Benign essential hypertension (ICD-10 - I10) 09/23/2024 Type 2 diabetes tesfaye itus without complication, with no history of insulin use (ICD-10 - E11.9) 12/17/2024 Type 2 diabetes tesfaye itus without complication, with no history of insulin use (ICD-10 - E11.9) 06/22/2024 Benign essential hypertension (ICD-10 - I10) stable, will continue curent regiment 12/21/2024 MCI (mild cognitive impairment) (ICD-10 - G31.84) referral to neuro at [facility] 06/10/2024 Type 2 diabetes tesfaye itus without complication, with no history of insulin use (ICD-10 - E11.9) 06/22/2024 Pure hypercholesterolemia (ICD-10 - E78.00) stable, will continue to monitor 12/21/2024 Diabetic neuropathy (ICD-10 - E11.40) will continue to monitor 12/21/2024 Pure hypercholesterolemia (ICD-10 - E78.00) stable, will contonue current regiment Plan Of Treatment Pending Test Test Name Order Date XR CERVICAL SPINE 4+ VIEWS 01/09/2021 US LEG LT VENOUS DOPPLER 02/11/2017 XR thoracic spine 3V 01/09/2021 Next Appt Details Provider Name:Yogi ferrellr, 06/28/2025 07:15:00 AM, [address] [place] [address], [address], [facility], [place], [phone], Provider Name:Yogi ferrellr, 07/05/2025 09:30:00 AM, [address], [address], [facility], [place], [phone], Insurance Providers Payer Name Payer Address Payer Phone Subscriber Number Group Number Insured Name Patient Relationship to Insured Coverage Start Date Coverage End Date MEDICARE NHIC YOVANY [address] [place] [id number] Clarke Beebe Self - patient is the insured [facility] [address] [place] [phone] [id number] Clarke Beebe Self - patient is the insured Medical [...]
== END 2025-01-27 10:33 | disposition home or self-care (01) ==
LOC: HO.HSMS 09:24
PROVIDERS: PCP Internal Medicine; Visit Provider Psychiatry & Neurology Neurology
DX: R41.89 Other symptoms and signs involving cognitive functions and awareness (principal)
CPT/HCPCS: 99204

== ENCOUNTER 2025-02-13 09:09 | Outpatient (REF) | payer MEDICARE, OTHER, SELFPAY ==
--- NOTE | ~2025-02-13 | MR_ITS ---
EXAMINATION: MR BRAIN WITHOUT CONTRAST CLINICAL INFORMATION: Other symptoms and signs involving cognitive functions and awareness. 64-year-old male complaining of forgetfulness, worsening. COMPARISON: None available. TECHNIQUE: MRI of the brain was obtained using routine sequences without contrast. Examination performed on a 1.5 Jenny Siemens high-field unit. FINDINGS: There is no diffusion restriction. There is no intracranial hemorrhage, acute infarction, mass effect, or edema. Ventricles, sulci, and cisterns are normal in size and configuration for patient age. No abnormal patterns of atrophy. No shift of midline. No abnormal hemosiderin deposition is identified. There are a few scattered punctate and minimally confluent foci of white matter T2 hyperintensity in the periventricular, subcortical, and hemispheric deep white matter. These foci are nonspecific but statistically most likely relate to mild small vessel ischemic changes. Midline structures appear normally formed. The pituitary gland appears normal. Posterior fossa structures appear normal. Cerebellar tonsils are appropriately located. Major flow voids are preserved within the skull base. The globes and orbital contents demonstrate no abnormalities. Paranasal sinuses are clear bilaterally. Nasal septum is midline without spur. The mastoids and tympanic cavities are normally aerated. Extracranial soft tissues demonstrate no abnormalities. No suspicious bone marrow changes are evident. Atlantoaxial joint demonstrates mild degenerative changes. MR/MR head/brain wo con IMPRESSION: 1. No evidence of intracranial hemorrhage, acute infarction, mass effect, or edema. 2. Age-appropriate cerebral and cerebellar involutional change without abnormal pattern of atrophy. 3. Mild changes of small vessel ischemia. Electronically signed by: Lion Muniz MD 02/14/2025 12:23 PM EDT
== END 2025-02-13 09:10 | disposition home or self-care (01) ==
LOC: HO.MRI 09:09
PROVIDERS: PCP Internal Medicine; Visit Provider Psychiatry & Neurology Neurology
DX: R41.89 Other symptoms and signs involving cognitive functions and awareness (principal)
CPT/HCPCS: 70551

== ENCOUNTER → 2025-02-13 09:09 | Outpatient (BNV) | payer MEDICARE, OTHER, SELFPAY | PROVIDERS: PCP Internal Medicine; Visit Provider Radiology Diagnostic Radiology | DX: R41.89 Other symptoms and signs involving cognitive functions and awareness (principal) | CPT/HCPCS: 70551 ==

== ENCOUNTER 2025-06-28 10:32 | Outpatient (REF) | payer MEDICARE, OTHER, SELFPAY ==
[2025-06-28 10:38] LABS: MANUAL DIFF FLAG NO
[2025-06-28 10:59] LABS: Appearance Urine Clear; Glucose Urine UA Negative (Negative); Hematocrit 45.9 % (42.0-52.0); Hemoglobin 15.2 g/dl (14.0-18.0); Imm Gran Abs Auto 0.05 X10*3/uL (0.00-0.03); Imm Gran Pct Auto 0.5 % (0.0-0.4); Lymphocytes Absolute Auto 2.3 X10*3/uL (1.2-4.9); Mean Corpuscular HGB Conc 33.1 g/dl (31.0-36.0); Mean Corpuscular Hemoglobin 30.3 pg (27.0-33.0); Mean Corpuscular Volume 91.4 fL (80.0-98.0); NRBC Abs Auto 0.000 X10*3/uL (0.0-0.012); NRBC Pct Auto 0.0 /100WBC (0.0-0.2); PH 6.0 (5.0-9.0); Platelet Count 266 X10*3/uL (160-400); Red Blood Count 5.02 X10*6/uL (4.60-5.80); Specific Gravity - Urine 1.020 (1.005-1.025); White Blood Count 9.4 X10*3/uL (4.8-10.8)
[2025-06-28 11:17] LABS: Alanine Aminotransferase 35 U/L (0-40); Albumin Level 4.1 g/dL (3.5-5.0); Alkaline Phosphatase 67 U/L (39-117); Anion Gap 12 (12-20); Aspartate Amino Transferase 27 U/L (5-37); Blood Urea Nitrogen 16 mg/dL (9-16); Calcium 9.3 mg/dL (8.4-10.2); Carbon Dioxide 28 mmol/L (22-29); Chloride 107 mmol/L (96-108); Cholesterol 198 mg/dL (<200); Estimated Glomerular Filt Rate > 60; HDL Cholesterol 35 mg/dL (>40); Potassium 4.5 mmol/L (3.3-5.1); Sodium 142 mmol/L (135-145); Total Protein 7.2 g/dL (6.5-8.0); Triglycerides 189 mg/dL (<150)
[2025-06-28 11:29] LABS: PSA,Total (Free>4and<10) 0.52 ng/mL (0.00-4.00)
[2025-06-28 11:55] LABS: Microalbum/Creatinine Ratio Ur 8.6 ug/mg cr (<30)
--- OUTSIDE RECORDS SUMMARY | 2025-06-28 12:12 | XMS_ITS | Encounter Summary ---
Author Organization [facility] Address [address] [place] [address] Phone Care Team Providers Care Gambling Floor Supervisor Name Role Phone Unavailable Primary Care Provider Unavailabl e Encounter Details Date Type Department Care Team (Latest Contact Info) Description 01/06/2019 Ancillary Orders [facility] [address] [place] [address] Michelle Vivar PA [address] [place] [address] [email or web address] Paroxysmal atrial fibrillation Social History Tobacco Use Types Packs/Day Years Used Date Smoking Tobacco: Never Assessed Sex and Gender Information Value Date Recorded Sex Assigned at Not on file Legal Sex Male 2:13 PM EDT Gender Identity Not on file Sexual Orientation Not on file documented as of this encounter Plan of Treatment Not on file documented as of this encounter Results * Holter Monitor 24 Hours (01/06/2019 11:25 AM EDT) Anatomical Region Laterality Modality Heart Other Narrative 01/06/2019 12:53 PM EDT 24-hour monitor: Initial rhythm is atrial fibrillation with a ventricular rate in the 80s. The patient converted to sinus rhythm at 7:20 PM, with normal sinus node recovery time. After conversion, there were occasional PACs and couplets. Overall, the minimum heart rate is 34, maximum 110 average 60 bpm with longest pause 2.08 seconds. There was no patient diary included. There were no patient event markers. Impression: Abnormal 24-hour monitor. Atrial fibrillation converting to sinus rhythm. No diary included. Procedure Note Dustin Sigala MD - 01/06/2019 24-hour monitor: Initial rhythm is atrial fibrillation with a ventricularrate in the 80s. The patient converted to sinus rhythm at 7:20 PM, withnormal sinus node recovery time. After conversion, there were occasionalPACs and couplets. Overall, the minimum heart rate is 34, maximum 110average 60 bpm with longest pause 2.08 seconds. There was no patientdiary included. There were no patient event markers. Impression: Abnormal 24-hour monitor. Atrial fibrillation converting tosinus rhythm. No diary included. Michelle [facility] ORDERA BLES Final Result documented in this encounter Visit Diagnoses Diagnosis Paroxysmal atrial fibrillation Atrial fibrillation Paroxysmal atrial fibrillation Atrial fibrillation documented in this encounter Additional Source Comments The information contained in this document represents components of the legal health record. It is not the complete legal health record.[facility]
--- OUTSIDE RECORDS SUMMARY | 2025-06-28 12:12 | XMS_ITS | Clinical Summary ---
Author Organization Located [facility] Address [address] [address] Phone Care Team Providers Care Ornament Stapler Name Role Phone Unavailable Primary Care Provider Unavailabl e Social History Tobacco Use Types Packs/Day Years Used Date Smoking Tobacco: Never Assessed Education Answer Date Recorded Are you interested in more education? Not on amrit e 11/22/2022 Are you concerned about learning? Not on file 11/22/2022 No 11/22/2022 No 11/22/2022 Digital Access Answer Date Recorded No 12/24/2022 No 12/24/2022 No 12/24/2022 Reliable internet access at home? Not on file 12/24/2022 Device with a working camera? Not on file Sex and Gender Information Value Date Recorded Sex Assigned at Not on file Legal Sex Male 2:13 PM EDT Gender Identity Not on file Sexual Orientation Not on file Plan of Treatment Not on file Medical Devices Not on file Insurance [facility] [employer] [id number] [facility] [employer] CHOICE [facility] [place] [address] [place] [address] CHOICE [facility] CHOICE [facility] CHOICE [facility] CHOICE [facility] CHOICE Additional Source Comments The information contained in this document represents components of the legal health record. It is not the complete legal health record.[facility]
--- OUTSIDE RECORDS SUMMARY | 2025-06-28 12:12 | XMS_ITS | Clinical Summary ---
Author Organization [facility] ity Address [address] [place] [address] Care Team Providers Care Bakery Products Checker Name Role Phone Unavailable Primary Care Provider [...] 2008 Zoster Vaccines (1 of 2) 2008 Depression Screening 07/28/2024 COVID-19 Vaccine (1 - 2024-2 6 season) 2025 Influenza Vaccine (#1) 2025 RSV Immunization Adult Patie nts (1 [...]
== END 2025-06-28 10:33 | disposition home or self-care (01) ==
LOC: HO.LNP 10:32
PROVIDERS: Visit Provider Internal Medicine
DX: Z12.5 Encounter for screening for malignant neoplasm of prostate (principal); N40.0 Benign prostatic hyperplasia without lower urinary tract symptoms; E11.9 Type 2 diabetes mellitus without complications; I10 Essential (primary) hypertension; E78.00 Pure hypercholesterolemia, unspecified
CPT/HCPCS: 80053; 80061; 81001; 82043; 82570; 83036; 84153; 85025